=== PATIENT | male | born 1945 | race Caucasian/White ===

== ENCOUNTER 2018-02-13 12:53 | Emergency (ER) | payer OTHER, MEDICARE ==
--- OUTSIDE RECORDS SUMMARY | 2018-02-13 12:54 | XMS REPORT | Clinical Summary ---
:1945 Author Organization [facility] Address [address] [place] [address] Care Team Providers Name Role Phone Jacky Guillen MD Primary Care Provider Allergies No Known Allergies Current Medications Prescription Sig. Disp. Refills Start Date End Date Status celecoxib (CeleBREX) 200 MG 06/20/2016 Active capsule gabapentin (NEURONTIN) 600 mg TK 1 T PO QHS 0 06/12/2016 Active tablet HYDROcodone-acetaminophen 06/21/2016 Active (NORCO) 10-325 mg per tablet losartan (COZAAR) 100 MG TK 1 T PO QD 6 05/24/2016 Active tablet ondansetron (ZOFRAN) 4 MG 06/20/2016 Active tablet Active Problems Problem Noted Date Fever 08/21/2016 Osteoarthritis of right knee 07/03/2016 Encounters Date Type Specialty Care Team Description 06/25/2017 Hospital Encounter Radiology Aleksandar Gardner in chest MD Selena 06/18/2017 Transcribe Orders Access Aleksandar Gardner Mass in chest ( Primary AMD Angie Dx) after 02/12/2017 Social History Tobacco Use Types Packs/Day Years Used Date Current Some Day Smoker Alcohol Use Drinks/Week oz/Week Comments Yes 1 Cans of beer 1.2 1 Glasses of wine Sex Assigned at Date Recorded Not on file Last Filed Vital Signs Not on file Plan of Treatment Health Maintenance Due Date Last Done Comments COLON CANCER SCREENING 1997 SHINGRIX VACCINE (#1) 1997 ZOSTER VACCINE 2007 PNEUMOCOCCAL POLYSACCHARIDE VACCINE AGE 65 AND OVER 2012 PNEUMOCOCCAL-13 2012 INFLUENZA VACCINE 02/12/2018 Implants Implanted Type Area Lead Software Architect Device Expiration Model / Identifier Date Serial / Lot Ortega Patella 3-Pegs P3 - [id number] [id number] IMPLANT Right: [facility] 2020 [id number] / Implanted: Qty: 1 on 07/03/2016 by Tank Live MD DEVICES Knee IMPLANT SYSTEMS / - ORTHOPAEDICS [id number] As Obturator Screw 14mm X 7mm - [id number] [id number] IMPLANT Right: AESCUMEP [id number] / Implanted: Qty: 1 on 07/03/2016 by Tank Live MD DEVICES Knee IMPLANT SYSTEMS / - ORTHOPAEDICS [id number] As Ortega Ps Femoral Comp.Cement. F6n R - [id number] IPM IMPLANT Right: [facility] 2019 [id number] / Implanted: Qty: 1 on 07/03/2016 by Tank Live MD DEVICES Knee IMPLANT SYSTEMS / - ORTHOPAEDICS [id number] As Ortega Ps Tibial Plat.Cemented T4+, Tray, Coated - Cemented Advanced - [id number] [id number] IMPLANT Right: [facility] 2025 [id number] / Implanted: Qty: 1 on 07/03/2016 by Tank Live MD DEVICES Knee IMPLANT SYSTEMS / - ORTHOPAEDICS [id number] Ortega Ps Gliding Surface T4/T4+ 10mm, Insert - Advanced - [id number] [id number] IMPLANT Right: [facility] 09/11/2020 [id number] / Implanted: Qty: 1 on 07/03/2016 by Tank Live MD DEVICES Knee IMPLANT SYSTEMS / - ORTHOPAEDICS [id number] Cement Bone R+G 1dose Palacos - [id number] Knee Joint Right: [employer] [id number] / Implanted: Qty: 2 on 07/03/2016 by Tank Live MD Implants Knee / [id number] Procedures Procedure Name Priority Date/Time Associated Diagnosis Comments PET CT SKULL BASE Routine 06/25/2017 11:27 AM Mass in chest Results for this TO MID THIGH CERTIFIED INDOOR ENVIRONMENTALIST procedure are in the results section. POC GLUCOSE Routine 06/25/2017 10:08 AM Results for this CERTIFIED INDOOR ENVIRONMENTALIST procedure are in the results section. after 02/12/2017 Results PET/CT Skull Base To Mid Thigh (06/25/2017 11:27 AM) Narrative Performed At EXAMINATION:PET CT SKULL BASE TO MID THIGH [facility] CLINICAL HISTORY: R22.2 Localized swellingmass and lumptrunk, r22.2 COMPARISON:PET/CT scan of 02/03/2015 TECHNIQUE: The patient received 10-15 mCi 18-FDG intravenously. 1 hour later, PET/CT scanning from the orbits to the mid thighs was performed. CT scanning was nondiagnostic and used for attenuation correction purposes and to aid in localization of any abnormal findings on the PET images. Blood eespwwn=114. FINDINGS: Head and Neck There is no suspicious lymph node uptake and is no evidence of malignancy in the visualized brain. Chest Pulmonary, mediastinal, hilar, and axillary uptake are normal. Abdomen Uptake in the liver, spleen, adrenal glands, stomach, pancreas, and kidneys is normal. There is no suspicious retroperitoneal or mesenteric lymph node uptake. Pelvis There is no suspicious pelvic or inguinal lymph node uptake. Mild, nonspecific inflammatory uptake near surgical clips in the inguinal regions bilaterally. Osseous Structures There is no suspicious osseous uptake. IMPRESSION: 1.No evidence of an FDG-avid malignancy. 2.Interval resolution of previously seen mild left perihilar abnormality. [facility]-[id number] Procedure Note Interface, Radiology Results Incoming - 06/25/2017 12:06 PM CERTIFIED INDOOR ENVIRONMENTALIST EXAMINATION: PET CT SKULL BASE TO MID THIGH CLINICAL HISTORY: R22.2 Localized swelling mass and lump trunk, r22.2 COMPARISON: PET/CT scan of 02/03/2015 TECHNIQUE: The patient received 10-15 mCi 18-FDG intravenously. 1 hour later, PET/CT scanning from the orbits to the mid thighs was performed. CT scanning was nondiagnostic and used for attenuation correction purposes and to aid in localization of any abnormal findings on the PET images. Blood xphalzs=405. FINDINGS: Head and Neck There is no suspicious lymph node uptake and is no evidence of malignancy in the visualized brain. Chest Pulmonary, mediastinal, hilar, and axillary uptake are normal. Abdomen Uptake in the liver, spleen, adrenal glands, stomach, pancreas, and kidneys is normal. There is no suspicious retroperitoneal or mesenteric lymph node uptake. Pelvis There is no suspicious pelvic or inguinal lymph node uptake. Mild, nonspecific inflammatory uptake near surgical clips in the inguinal regions bilaterally. Osseous Structures There is no suspicious osseous uptake. IMPRESSION: 1. No evidence of an FDG-avid malignancy. 2. Interval resolution of previously seen mild left perihilar abnormality. [facility]-[id number] Performing Organization Address City/State/Zipcode Phone Number [facility] [address] [place] [address] POC glucose (06/25/2017 10:08 AM) POC glucose 114 (H) 65 - 99 mg/dL [facility] DEPARTMENT OF PATHOLOGY AND Comment: GENOMIC MEDICINE No Action Needed Meter ID: [id number] Engineering Design Manager: Jada Bedolla Performing Organization Address City/[facility] Phone Number [facility] DEPARTMENT OF PATHOLOGY AND [address] [place] [address] GENOMIC MEDICINE after 02/12/2017 Insurance Payer Benefit Plan / Group Subscriber ID Type Phone Address MEDICARE MEDICARE PART A AND B xxxxxxxxxx Medicare [place], [place] AARP AARP SUPPLEMENT xxxxxxxxxx Commercial Home: [address] [phone] [place], [place] [address]
[2018-02-13] MEDS ORDERED: ONDANSETRON 4 MG/2 ML VIAL ONE (13:21)
[2018-02-13] MEDS ORDERED: NA CHLORIDE 0.9% 1,000 ML ONE (13:21)
[2018-02-13] MEDS ORDERED: MORPHINE 4 MG/ML SYR ONE (13:21)
[2018-02-13 13:45] LABS: Protime INR 1.02
[2018-02-13 13:49] LABS: Absolute Lymphocytes (CBC) 1.9 K/uL (0.7-4.9); Absolute Monocytes 0.4 K/uL (0.1-1.3); Absolute Neutrophil 3.8 K/uL (1.8-8.0); Basophils % 1.3 % (0-1.3); Eosinophils % 3.7 % (0-4.4); Hematocrit 38.8 % (39.6-49.0); Lymphocytes % 29.9 % (15.3-44.8); MCH 33.9 pg (27.0-35.0); MCV 97.1 fL (80-100); MPV 8.6 fL (7.6-11.3); Monocytes % 5.6 % (3.3-12.3)
--- NOTE | 2018-02-13 13:54 | RAD REPORT ---
EXAM DESCRIPTION: RAD - Chest Single View - 02/13/2018 1:47 pm CLINICAL HISTORY: CHEST PAIN Trauma, fall COMPARISON: Chest Pa And Lat (2 Views) dated 06/12/2017; Chest Single View dated 08/16/2016; CHEST PA AND LAT 2 VIEW dated 07/24/2012; CHEST SINGLE VIEW dated 02/24/2010 FINDINGS: Portable technique limits examination quality. The lungs are grossly clear. The heart is normal in size. Hardware is present along the left thoracic cage in the left clavicle. Right humeral prosthesis is present.
[2018-02-13 13:55] LABS: Potassium 4.7 mmol/L (3.5-5.1)
--- NOTE | 2018-02-13 14:03 | RAD REPORT ---
EXAM DESCRIPTION: RAD - Humerus Left - 02/13/2018 1:53 pm CLINICAL HISTORY: fall down stairs;Pain Trauma COMPARISON: No comparisons FINDINGS: No acute fracture or dislocation seen.
--- NOTE | 2018-02-13 14:30 | RAD REPORT ---
EXAM DESCRIPTION: CT - Head C Spine Cap W Con - 02/13/2018 2:17 pm CLINICAL HISTORY: Trauma, head and neck injury. Chest, abdomen and pelvis pain. fall down stairs COMPARISON: Abdomen Pelvis W Contrast dated 08/22/2016 TECHNIQUE: CT head without contrast. CT cervical spine without contrast with coronal and sagittal reformatted images. CT chest, abdomen and pelvis with IV contrast (approximately 100 mL nonionic IV contrast) with flores l and sagittal reformatted images of the spine. All CT scans are performed using dose optimization technique as appropriate and may include automated exposure control or mA/KV adjustment according to patient size. FINDINGS: CT HEAD WITHOUT CONTRAST: No intracranial hemorrhage, hydrocephalus or extra-axial fluid collection. No areas of brain edema o r midline shift. The paranasal sinuses and mastoids are clear. The calvarium is intact. CT CERVICAL SPINE WITHOUT CONTRAST: No fracture or subluxation. Mild lower cervical spondylosis. The prevertebral soft tissues are normal in thickness. CT CHEST, ABDOMEN, PELVIS WITH CONTRAST: The lungs are clear.Hardware is noted in the left clavicle and left rib cage.No pneumothorax or peric ardial/pleural fluid. No evidence of intra-abdominal visceral injury, free fluid or free air. Cholecystectomy clips. Evidence of inguinal hernia repairs noted. No acute fractures demonstrated. IMPRESSION: Negative for acute traumatic findings.
[2018-02-13] MEDS ORDERED: KETOROLAC 30 MG/ML INJ ONE (15:17)
--- NOTE | 2018-02-13 15:53 | EDPHYS ---
Physician Documentation [facility] Name: Irvin Ramirez Age: 72 yrs Sex: Male : 1945 Arrival Date: 02/13/2018 Time: 12:42 Bed 23 Private MD: ED Physician Sedrick Thurston HPI: 02/13 13:00 This 72 yrs old Male presents to ER via EMS with complaints of Fall Injury. cp 13:00 Details of fall: The patient fell from a height, down approximately 5 stairs, and cp struck a concrete surface. Onset: The symptoms/episode began/occurred just prior to arrival. Associated injuries: The patient sustained injury to the head, abrasion, injury to the chest, specifically the left lateral anterior chest and left lateral posterior chest, pain with movement, left shoulder, decreased range of motion, painful injury. 13:00 Severity of symptoms: in the emergency department the symptoms are unchanged. Patient cp reports trip and fall down 5 stairs located outside. Possible brief LOC. Historical: - Allergies: 12:52 No Known Allergies; ss - PMHx: 12:52 Hypertension; Atrial Fib; ss - PSHx: 12:52 Cholecystectomy; TBI; titanium ribs (L side); ss - Immunization history:: Adult Immunizations up to date. - Social history:: Smoking status: Patient/guardian denies using tobacco. - Immunization history: Last tetanus immunization: unknown. - Ebola Screening: : Patient denies exposure to infectious person Patient denies travel to an Ebola-affected area in the 21 days before illness onset. ROS: 13:05 Constitutional: Negative for body aches, chills, fever, poor PO intake. cp 13:05 Eyes: Negative for injury, pain, redness, and discharge. cp 13:05 ENT: Negative for drainage from ear(s), ear pain, sore throat, difficulty swallowing, difficulty handling secretions. 13:05 Neck: Negative for stiffness, bony tenderness. 13:05 Cardiovascular: Positive for chest pain, of the left lateral chest, Negative for edema, palpitations. 13:05 Respiratory: Negative for cough, shortness of breath, wheezing. 13:05 Abdomen/GI: Positive for abdominal pain, of the anterior aspect of left lateral abdomen and posterior aspect of left lateral abdomen, Negative for nausea, vomiting, and diarrhea, constipation, anorexia, black/tarry stool, rectal bleeding. 13:05 Back: Negative for pain at rest, pain with movement. 13:05 MS/extremity: Positive for decreased range of motion, pain, tenderness, of the left shoulder, Negative for paresthesias, tenderness. 13:05 Skin: Positive for abrasion(s), of the face and bilateral knees, Negative for diaphoresis. 13:05 Neuro: Negative for altered mental status, headache, seizure activity, syncope, near syncope, weakness. 13:05 All other systems are negative. Exam: 13:12 Constitutional: The patient appears in no acute distress, alert, awake, cp non-diaphoretic, non-toxic, well developed, well nourished. 13:12 Head/face: Noted is abrasion(s), that are mild, of the left religious, swelling, that is cp mild, of the left religious, Sinus tenderness, is not appreciated. 13:12 Eyes: Periorbital structures: appear normal, Pupils: equal, round, and reactive to light and accomodation, Extraocular movements: intact throughout, Conjunctiva: normal, no exudate, no injection, Sclera: no appreciated abnormality, Lids and lashes: appear normal, bilaterally. 13:12 ENT: External ear(s): are unremarkable, Ear canal(s): are normal, clear, TM's: are normal, no evidence of bulging, no erythema, Nose: is normal, Mouth: is normal, Posterior pharynx: is normal, airway is patent, no erythema, no exudate, Voice: is normal. 13:12 Neck: C-spine: C-collar placed in ED, Trachea: is midline with no obvious abnormalities. 13:12 Chest/axilla: Inspection: normal, Palpation: is normal, no crepitus, no tenderness. 13:12 Cardiovascular: Rate: normal, Rhythm: regular, Pulses: Pulses are 2+ in right radial artery and left radial artery. Edema: is not appreciated, JVD: is not appreciated. 13:12 Respiratory: the patient does not display signs of respiratory distress, Respirations: normal, no use of accessory muscles, no retractions, no splinting, no tachypnea, labored breathing, is not present, Breath sounds: are clear throughout, no decreased breath sounds, no stridor, no wheezing. 13:12 Abdomen/GI: Inspection: abdomen appears normal, Bowel sounds: active, all quadrants, Palpation: soft, in all quadrants, moderate abdominal tenderness, in the anterior aspect of left lateral abdomen and posterior aspect of left lateral abdomen, rebound tenderness, is not appreciated, voluntary guarding, is elicited in the anterior aspect of left lateral abdomen and posterior aspect of left lateral abdomen, involuntary guarding, is not appreciated. 13:12 Back: vertebral tenderness, is not appreciated, Straight leg raises: of both lower extremities does not illicit pain. 13:12 Musculoskeletal/extremity: Joints: All joints are normal except the left shoulder displays limited range of motion, painful range of motion, tenderness. 13:12 Skin: injury, abrasion(s), small abrasion noted, of the anterior aspect bilateral knees. 13:12 Neuro: Orientation: to person, place \T\ time. Mentation: lucid, able to follow commands, Cerebellar function: is grossly normal, Motor: moves all fours, strength is normal, Sensation: is normal. Vital Signs: 12:40 BP 161 / 84; Pulse 70; Resp 16; Temp 98.0(TE); Pulse Ox 98% on R/A; Weight 122.47 kg; ss Height 6 ft. 3 in. (190.50 cm); Pain 8/10; 13:36 BP 134 / 86; Pulse 98; Resp 18; Temp 98.5(O); Pulse Ox 98% on R/A; Pain 2/10; ed1 14:36 BP 120 / 64; Pulse 65; Resp 16; Temp 97.5; Pulse Ox 100% on R/A; Pain 3/10; ed1 15:36 BP 121 / 69; Pulse 73; Resp 18; Temp 98.1(O); Pulse Ox 99% on R/A; Pain 3/10; ed1 16:07 BP 128 / 73; Pulse 86; Resp 17; Temp 98.2(O); Pulse Ox 99% on R/A; Pain 0/10; ed1 12:40 Body Mass Index 33.75 (122.47 kg, 190.50 cm) Mesa Coma Score: 12:40 Eye Response: spontaneous(4). Verbal Response: oriented(5). Motor Response: obeys commands(6). Total: 15. Trauma Score (Adult): 12:40 Eye Response: spontaneous(1); Verbal Response: oriented(1); Motor Response: obeys ss commands(2); Systolic BP: > 89 mm Hg(4); Respiratory Rate: 10 to 29 per min(4); Mesa Score: 15; Trauma Score: 12 13:36 Eye Response: spontaneous(1); Verbal Response: oriented(1); Motor Response: obeys ed1 commands(2); Systolic BP: > 89 mm Hg(4); Respiratory Rate: 10 to 29 per min(4); Dayron Score: 15; Trauma Score: 12 14:36 Eye Response: spontaneous(1); Verbal Response: oriented(1); Motor Response: obeys ed1 commands(2); Systolic BP: > 89 mm Hg(4); Respiratory Rate: 10 to 29 per min(4); Mesa Score: 15; Trauma Score: 12 15:36 Eye Response: spontaneous(1); Verbal Response: oriented(1); Motor Response: obeys ed1 commands(2); Systolic BP: > 89 mm Hg(4); Respiratory Rate: 10 to 29 per min(4); Dayron Score: 15; Trauma Score: 12 16:07 Eye Response: spontaneous(1); Verbal Response: oriented(1); Motor Response: obeys ed1 commands(2); Systolic BP: > 89 mm Hg(4); Respiratory Rate: 10 to 29 per min(4); Mesa Score: 15; Trauma Score: 12 Procedures: 16:00 Splinting: Splint applied to left shoulder using sling, applied by nurse. Examined by cp me, post splint application: neurovascular intact, Patient tolerated well. MDM: 12:50 Patient medically screened. cp 15:50 Data reviewed: vital signs, nurses notes, lab test result(s), EKG, radiologic studies, cp CT scan. 15:50 Test interpretation: by ED physician or midlevel provider: ECG. Counseling: I had a cp detailed discussion with the patient and/or guardian regarding: the historical points, exam findings, and any diagnostic results supporting the discharge/admit diagnosis, lab results, radiology results, the need for outpatient follow up, a orthopedic surgeon, to return to the emergency department if symptoms worsen or persist or if there are any questions or concerns that arise at home. Response to treatment: the patient's symptoms have markedly improved after treatment, and as a result, I will discharge patient. ED course: VSS. Radiology studies negative for significant trauma. Will discharge to home for continued monitoring. 02/13 12:53 Order name: Basic Metabolic Panel; Complete Time: 15:04 cp 02/13 15:04 Interpretation: Normal except: GFR 74. cp 02/13 12:53 Order name: CBC with Diff; Complete Time: 15:04 cp 02/13 15:04 Interpretation: Normal except: RBC 4.00; HCT 38.8; MCV 97.1. cp 02/13 12:53 Order name: Creatinine for Radiology; Complete Time: 15:04 cp 02/13 12:53 Order name: Type And Screen; Complete Time: 15:04 cp 02/13 12:53 Order name: PT-INR; Complete Time: 15:04 cp 02/13 12:53 Order name: Ptt, Activated; Complete Time: 15:04 cp 02/13 12:53 Order name: XRAY Humerus LEFT; Complete Time: 15:04 cp 02/13 12:53 Order name: XRAY Chest (1 view); Complete Time: 15:04 cp 02/13 12:53 Order name: CT Traumagram (Head C Spine CAP W Con); Complete Time: 15:04 cp 02/13 15:06 Interpretation: Report reviewed. 02/13 12:53 Order name: Troponin I; Complete Time: 15:04 cp 02/13 14:31 Order name: ABO/RH no charge; Complete Time: 15:04 EDMS 02/13 15:56 Order name: Urine Dipstick--Ancillary (enter results) 02/13 12:53 Order name: Labs collected and sent; Complete Time: 13:15 cp 02/13 12:53 Order name: Urine Dipstick-Ancillary (obtain specimen); Complete Time: 16:29 cp 02/13 12:53 Order name: EKG; Complete Time: 12:54 cp 02/13 12:53 Order name: EKG - Nurse/Tech; Complete Time: 13:16 cp 02/13 15:49 Order name: Sling; Complete Time: 16:29 cp Administered Medications: 13:23 Drug: NS 0.9% 250 ml Route: IV; Rate: bolus; Site: right antecubital; ed1 13:55 Follow up: IV Status: Completed infusion; IV Intake: 250ml ed1 13:23 Drug: NS 0.9% 1000 ml Route: IV; Rate: 75 ml/hr; Site: right antecubital; ed1 16:12 Follow up: IV Status: Order to discontinue infusion; IV Intake: 155ml ed1 13:25 Drug: morphine 4 mg Route: IVP; Site: right antecubital; ss 14:20 Follow up: Response: No adverse reaction; Pain is decreased ed1 13:25 Drug: Zofran 4 mg Route: IVP; Site: right antecubital; ss 14:20 Follow up: Response: No adverse reaction ed1 15:15 Drug: TORadol 30 mg Route: IVP; Site: right antecubital; ss 16:05 Follow up: Response: No adverse reaction; Pain is decreased ed1 16:05 Drug: Tetanus-Diphtheria Toxoid Adult 0.5 ml {Valet Attendant: Vinobo. Exp: ed1 04/02/2020. Lot #: [id number]. } Route: IM; Site: right deltoid; 16:12 Follow up: Response: No adverse reaction ed1 Disposition: 17:00 Chart complete. cp Disposition: 02/13/18 15:53 Discharged to Home. Impression: Pain in left shoulder - s/p fall, Fall (on) (from) other stairs and steps, Abrasion of unspecified part of head. - Condition is Stable. - Discharge Instructions: Head Injury, Adult, Shoulder Pain, Shoulder Range of Motion Exercises. - Prescriptions for Ibuprofen 800 mg Oral Tablet - take 1 tablet by ORAL route every 8 hours As needed take with food; 30 tablet. Cyclobenzaprine 10 mg Oral Tablet - take 1 tablet by ORAL route every 8 hours As needed no driving while taking medication; 20 tablet. Tramadol 50 mg Oral Tablet - take 1 tablet by ORAL route every 8 hours as needed. no driving while taking medication; 15 tablet. - Medication Reconciliation Form, Thank You Letter, Antibiotic Education, Prescription Opioid Use form. - Follow up: Private Physician; When: 2 - 3 days; Reason: Recheck today's complaints. - Problem is new. - Symptoms have improved. Addendum: 02/17/2018 07:17 Co-signature as Attending Physician, Sedrick Thurston MD I agree with the assessment and k dr plan of care. Signatures: Dispatcher [employer] EDSC Sedrick Thurston MD MD kdr Smirch, Shelby, RN RN ss Anu Garcia, GROUNDS KEEPER GROUNDS KEEPER ed1 Ivan Carlson PA PA cp Corrections: (The following items were deleted from the chart) 02/13 16:29 15:53 02/13/2018 15:53 Discharged to Home. Impression: Pain in left shoulder - s/p ed1 fall; Fall (on) (from) other stairs and steps; Abrasion of unspecified part of head. Condition is Stable. Forms are Medication Reconciliation Form, Thank You Letter, Antibiotic Education, Prescription Opioid Use. Follow up: Private Physician; When: 2 - 3 days; Reason: Recheck today's complaints. Problem is new. Symptoms have improved. cp
--- NOTE | 2018-02-13 15:53 | ER ---
Nurse's Notes [facility] Name: Irvin Ramirez Age: 72 yrs Sex: Male : 1945 Arrival Date: 02/13/2018 Time: 12:42 Bed 23 Private MD: Diagnosis: Pain in left shoulder-s/p fall;Fall (on) (from) other stairs and steps;Abrasion of unspecified part of head Presentation: 02/13 12:42 Presenting complaint: Patient states: Fell down 5 steps after getting distracted and ss losing footing, approx 45 minutes ago. Unknown LOC. Pt reports that if he did lose consciousness that it was for a very brief moment. Pt c/o pain to L shoulder and L lateral aspect of chest. Care prior to arrival: None. Mechanism of Injury: Fall down 5 steps. Trauma event details: Injury occurred in the [facility], Injury occurred: in a public building. Injury occurred: February 13, 2018. 12:42 Acuity: MARIBEL 3 ss 12:42 Method Of Arrival: EMS: [facility] ss 12:42 Transition of care: patient was not received from another setting of care. Onset of ss symptoms was February 13, 2018. Risk Assessment: Do you want to hurt yourself or someone else? Patient reports no desire to harm self or others. Initial Sepsis Screen: Does the patient meet any 2 criteria? No. Patient's initial sepsis screen is negative. Does the patient have a suspected source of infection? No. Patient's initial sepsis screen is negative. Trauma Activation: Alert Physician: ED Physician; Name: Dr. Thurston; Notified At: 12:32; Arrived At: 12:32 Physician: General Surgeon; Name: ; Notified At: 12:32; Arrived At: Specialty not needed Physician: Radiology; Name: Jacy (CT) Adam (XRAY); Notified At: 12:32; Arrived At: 12:32 Physician: Respiratory; Name: ; Notified At: 12:32; Arrived At: Specialty not needed Physician: Lab; Name: ; Notified At: 12:32; Arrived At: Specialty not needed Historical: - Allergies: 12:52 No Known Allergies; ss - PMHx: 12:52 Hypertension; Atrial Fib; ss - PSHx: 12:52 Cholecystectomy; TBI; titanium ribs (L side); ss - Immunization history:: Adult Immunizations up to date. - Social history:: Smoking status: Patient/guardian denies using tobacco. - Immunization history: Last tetanus immunization: unknown. - Ebola Screening: : Patient denies exposure to infectious person Patient denies travel to an Ebola-affected area in the 21 days before illness onset. Screenin:40 Abuse screen: Denies threats or abuse. Denies injuries from another. Tuberculosis ss screening: No symptoms or risk factors identified. Never had TB. 15:00 Fall Risk Fall in past 12 months (25 points). No secondary diagnosis (0 pts). IV access ed1 (20 points). Ambulatory Aid- None/Bed Rest/Nurse Assist (0 pts). Gait- Normal/Bed Rest/Wheelchair (0 pts) Mental Status- Oriented to own ability (0 pts). Total Gonzalez Fall Scale indicates Low Risk Score (25-44 pts). Fall prevention measures have been instituted. Side Rails Up X 2 Frequent Obs/Assesments occuring Family Present and informed to notify staff if they need to leave bedside As available Patient and Family Educated on Fall Prevention Program and strategies. 16:07 Nutritional screening: No deficits noted. ed1 Primary Survey: 12:42 A: Airway: patent, No supplemental oxygen in use on arrival. Oral cavity: clear, ss Trachea midline. Breathing/Chest: Respiratory pattern: regular, Respiratory effort: spontaneous, unlabored, Breath sounds: clear, bilaterally. Chest inspection: symmetrical rise and fall of the chest. Circulation: Pulses: palpable right radial artery, right posterior tibial artery, left radial artery and left posterior tibial artery. Skin temperature: warm. Disability Alert. 13:20 Reassessment Airway Airway Patent Oxygen No O2 Oral cavity Clear Trachea Midline ss Breathing/Chest Respiratory pattern Regular Respiratory effort Spontaneous Unlabored Breath sounds Clear Chest inspection Symmetrical Disability Alert. Secondary Survey: 12:42 HEENT: Head Other abrasion, approximately half dollar in size noted to L side of ss forehead. Musculoskeletal: Circulation, motion, and sensation intact. Capillary refill < 3 seconds, is brisk, in bilateral fingers. Range of motion: limited in left shoulder Swelling absent. Assessment: 12:42 General: Appears uncomfortable, Behavior is cooperative, anxious, Denies fever, feeling ss ill, fatigue, chills, Pt denies any neck pain. C collar applied on arrival per MAX Hernandez. General:. Pain: Complains of pain in L lateral aspect of ribs and L shoulder Pain currently is 8 out of 10 on a pain scale. Quality of pain is described as aching, tender, Pain began approx 45 minutes ago, suddenly after fall Is continuous, Aggravated by repositioning, applying pressure, deep breathing. Neuro: Level of Consciousness is awake, alert, obeys commands, Oriented to person, place, time, situation, Speech is normal, Facial symmetry appears normal, Pupils are PERRLA. EENT: Nares are clear Oral mucosa is moist. Throat is clear is pink Denies nasal congestion, nasal discharge, difficulty swallowing. Cardiovascular: Heart tones S1 S2 present Capillary refill < 3 seconds is brisk in bilateral fingers Patient's skin is warm and dry. Respiratory: Reports pain with movement pain with respiration Airway is patent Trachea midline Respiratory effort is even, unlabored, Respiratory pattern is regular, symmetrical, Breath sounds are clear bilaterally. GI: Abdomen is round non-distended, Patient currently denies abdominal pain, diarrhea, nausea, vomiting. : No signs and/or symptoms were reported regarding the genitourinary system. Derm: Skin is intact, is healthy with good turgor, Skin is dry, Skin is pink, warm \T\ dry. normal. Musculoskeletal: Circulation, motion, and sensation intact. Capillary refill < 3 seconds, is brisk, in bilateral fingers. Range of motion: limited in left shoulder Swelling absent. Injury Description: Abrasion sustained to R side of forehead. 13:36 Reassessment: Patient appears in no apparent distress at this time. No changes from ed1 previously documented assessment. Patient and/or family updated on plan of care and expected duration. Pain level reassessed. Patient is alert, oriented x 3, equal unlabored respirations, skin warm/dry/pink. Patient states feeling better. Patient states symptoms have improved. 14:22 Reassessment: Pt back form CT, appears comfortable. Awaiting results. C collar remains ss in place. 14:36 Reassessment: Patient appears in no apparent distress at this time. Patient and/or ed1 family updated on plan of care and expected duration. Pain level reassessed. Patient is alert, oriented x 3, equal unlabored respirations, skin warm/dry/pink. Patient denies pain at this time. Patient states feeling better. Patient states symptoms have improved. 15:36 Reassessment: Patient appears in no apparent distress at this time. No changes from ed1 previously documented assessment. Patient and/or family updated on plan of care and expected duration. Pain level reassessed. Patient is alert, oriented x 3, equal unlabored respirations, skin warm/dry/pink. 16:07 Reassessment: Patient appears in no apparent distress at this time. Patient and/or ed1 family updated on plan of care and expected duration. Pain level reassessed. Patient is alert, oriented x 3, equal unlabored respirations, skin warm/dry/pink. Patient denies pain at this time. Patient states feeling better. Patient states symptoms have improved. Vital Signs: 12:40 BP 161 / 84; Pulse 70; Resp 16; Temp 98.0(TE); Pulse Ox 98% on R/A; Weight 122.47 kg; ss Height 6 ft. 3 in. (190.50 cm); Pain 8/10; 13:36 BP 134 / 86; Pulse 98; Resp 18; Temp 98.5(O); Pulse Ox 98% on R/A; Pain 2/10; ed1 14:36 BP 120 / 64; Pulse 65; Resp 16; Temp 97.5; Pulse Ox 100% on R/A; Pain 3/10; ed1 15:36 BP 121 / 69; Pulse 73; Resp 18; Temp 98.1(O); Pulse Ox 99% on R/A; Pain 3/10; ed1 16:07 BP 128 / 73; Pulse 86; Resp 17; Temp 98.2(O); Pulse Ox 99% on R/A; Pain 0/10; ed1 12:40 Body Mass Index 33.75 (122.47 kg, 190.50 cm) Dayron Coma Score: 12:40 Eye Response: spontaneous(4). Verbal Response: oriented(5). Motor Response: obeys ss commands(6). Total: 15. Trauma Score (Adult): 12:40 Eye Response: spontaneous(1); Verbal Response: oriented(1); Motor Response: obeys ss commands(2); Systolic BP: > 89 mm Hg(4); Respiratory Rate: 10 to 29 per min(4); [place] Score: 15; Trauma Score: 12 13:36 Eye Response: spontaneous(1); Verbal Response: oriented(1); Motor Response: obeys ed1 commands(2); Systolic BP: > 89 mm Hg(4); Respiratory Rate: 10 to 29 per min(4); [place] Score: 15; Trauma Score: 12 14:36 Eye Response: spontaneous(1); Verbal Response: oriented(1); Motor Response: obeys ed1 commands(2); Systolic BP: > 89 mm Hg(4); Respiratory Rate: 10 to 29 per min(4); [place]ron Score: 15; Trauma Score: 12 15:36 Eye Response: spontaneous(1); Verbal Response: oriented(1); Motor Response: obeys ed1 commands(2); Systolic BP: > 89 mm Hg(4); Respiratory Rate: 10 to 29 per min(4); Dayron Score: 15; Trauma Score: 12 16:07 Eye Response: spontaneous(1); Verbal Response: oriented(1); Motor Response: obeys ed1 commands(2); Systolic BP: > 89 mm Hg(4); Respiratory Rate: 10 to 29 per min(4); [place] Score: 15; Trauma Score: 12 ED Course: 12:40 Patient has correct armband on for positive identification. Bed in low position. Call ss light in reach. Side rails up X 1. Pulse ox on. NIBP on. 12:40 Patient maintains SpO2 saturation greater than 95% on room air. ss 12:42 Patient arrived in ED. ss 12:42 Thermoregulation: warm blanket given to patient. ed1 12:43 Ivan Carlson PA is PHCP. cp 12:43 Sedrick Thurston MD is Attending Physician. cp 12:46 Triage completed. ss 12:52 Arm band placed on right wrist. ss 12:55 Kasie Bangura, TRINITY is Primary Nurse. ss 13:11 EKG done, by qa tech. reviewed by Ivan SANTANA. at1 13:23 Initial lab(s) drawn, by ne, sent to lab. T\T\S collected, blood band applied to patient. ed1 Inserted saline lock: 20 gauge in right antecubital area, using aseptic technique. Blood collected. 13:39 X-ray completed. Portable x-ray completed in exam room. Patient tolerated procedure jb2 well. 13:45 XRAY Humerus LEFT In Process Unspecified. EDMS 13:45 XRAY Chest (1 view) In Process Unspecified. EDMS 14:[address] via stretcher. sj 14:18 CT Traumagram (Head C Spine CAP W Con) In Process Unspecified. EDMS 15:51 Resting quietly. Awaiting disposition. ed1 16:09 Awaiting: catalyst plant supervisor to bring sling per order. ed1 16:09 No provider procedures requiring assistance completed. IV discontinued, intact, ed1 bleeding controlled, No redness/swelling at site. Pressure dressing applied. 16:28 Sling applied to left arm. ed1 Administered Medications: 13:23 Drug: NS 0.9% 250 ml Route: IV; Rate: bolus; Site: right antecubital; ed1 13:55 Follow up: IV Status: Completed infusion; IV Intake: 250ml ed1 13:23 Drug: NS 0.9% 1000 ml Route: IV; Rate: 75 ml/hr; Site: right antecubital; ed1 16:12 Follow up: IV Status: Order to discontinue infusion; IV Intake: 155ml ed1 13:25 Drug: morphine 4 mg Route: IVP; Site: right antecubital; ss 14:20 Follow up: Response: No adverse reaction; Pain is decreased ed1 13:25 Drug: Zofran 4 mg Route: IVP; Site: right antecubital; ss 14:20 Follow up: Response: No adverse reaction ed1 15:15 Drug: TORadol 30 mg Route: IVP; Site: right antecubital; ss 16:05 Follow up: Response: No adverse reaction; Pain is decreased ed1 16:05 Drug: Tetanus-Diphtheria Toxoid Adult 0.5 ml {Finish Painter: I-Stand. Exp: ed1 04/02/2020. Lot #: [id number]. } Route: IM; Site: right deltoid; 16:12 Follow up: Response: No adverse reaction ed1 Intake: 13:36 PO: 0ml; Total: 0ml. ed1 13:55 IV: 250ml; Total: 250ml. ed1 14:36 PO: 0ml; Total: 250ml. ed1 15:36 IV: 250ml (IV Fluid); Total: 500ml. ed1 16:07 PO: 0ml; Total: 500ml. ed1 16:10 PO: 0ml; IV: 405ml; Total: 905ml. ed1 16:12 IV: 155ml; Total: 1060ml. ed1 Output: 13:36 Urine: 0ml; Total: 0ml. ed1 14:36 Urine: 0ml; Total: 0ml. ed1 15:36 Urine: 0ml; Total: 0ml. ed1 15:50 Urine: 800ml (Voided); Total: 800ml. ed1 16:07 Urine: 0ml; Total: 800ml. ed1 16:10 Urine: 800ml (Voided); Total: 1600ml. ed1 Outcome: 15:53 Discharge ordered by MD. cp 16:08 Discharged to home ambulatory, with family. ed1 16:08 Condition: good 16:08 Discharge instructions given to patient, family, Instructed on discharge instructions, follow up and referral plans. medication usage, Demonstrated understanding of instructions, follow-up care, medications, Prescriptions given X 3. 16:11 Patient's length of stay in the Emergency Department was greater than 2 hours. ed1 16:29 Patient left the ED. ed1 Signatures: Dispatcher [employer] EDMS Adam Antonio jbAngelina Duncan Shelby, RN RN ss Anu Garcia, DEAF AND HARD OF HEARING TEACHER DEAF AND HARD OF HEARING TEACHER ed1 Gilda kuhn, radio equipment installer EKG Tat1 Ivan Carlson PA PA Leonor Perez [facility] Corrections: (The following items were deleted from the chart) 13:55 03:25 morphine 4 mg IVP in right antecubital ss 15:44 14:38 BP 120 / 64; Pulse 65bpm; Resp 16bpm; Pulse Ox 100% RA; mh5 ed1
[2018-02-13] MEDS ORDERED: TETANUS & DIPHTHERIA TOX,ADULT 0.5 ML VIAL ONE (16:03)
[2018-02-13 16:23] LABS: Urine Blood 2+ (NEG); Urine Glucose NEGATIVE (NEG); Urine Protein NEGATIVE (NEG); Urine Specific Gravity 1.015 (1.005-1.030); Urine pH 5.5 (5.0-7.0)
[2018-02-13 16:37] VITALS: O2SAT 99
[2018-02-13 16:39] VITALS: BP 128/73; TEMP 98.2
--- NOTE | 2018-02-13 16:53 | EKG ---
Test Date: 2018-02-13 Test Time: 12:58:08 Gis Engineer: PILO MEASUREMENT RESULTS: Intervals: Rate: 62 NH: 196 QRSD: 138 QT: 456 QTc: 462 [place]: P: 103 NH: 196 QRS: 86 T: 58 INTERPRETIVE STATEMENTS: Sinus rhythm with frequent premature ventricular complexes Right bundle branch block Abnormal ECG Compared to ECG 08/19/2016 05:24:33 Ventricular premature complex(es) now present Atrial premature complex(es) no longer present Electronically Signed On 02-13-18 16:52:06 CDT by Shen Alonso
== END 2018-02-13 16:29 | disposition home or self-care (01) ==
LOC: ER 12:53
DX: M25.512 Pain in left shoulder (principal); S00.81XA Abrasion of other part of head, initial encounter; I10 Essential (primary) hypertension; W01.198A Fall on same level from slipping, tripping and stumbling with subsequent striking against other object, initial encounter; Y93.89 Activity, other specified; Y92.9 Unspecified place or not applicable; Y99.9 Unspecified external cause status; Z23 Encounter for immunization
CPT/HCPCS: 36415; 70450; 71045; 71260; 72125; 73060; 74177; 80048; 81003; 84484; 85025; 85610; 85730; 86850; 86900; 86901; 90714; 93005; J2405; J7030; Q9967; 96361; 96365; 96375; 99285

== ENCOUNTER 2019-12-25 19:33 | Inpatient (IN) | payer OTHER, MEDICARE ==
--- OUTSIDE RECORDS SUMMARY | 2019-12-25 19:35 | XMS REPORT | Clinical Summary ---
:1945 Author Organization [facility] Address [address] [place] [address] Care Team Providers Name Role Phone Danna Guillen MD Primary Care Provider Allergies No Known Allergies Medications Medication Sig Dispensed Refills Start Date End Date Status losartan (COZAAR) 100 TK 1 T PO QD 6 05/24/2016 Active MG tablet flecainide (TAMBOCOR) Take 100 mg by 0 Active 100 MG tablet mouth 2 (two) times a day. amLODIPine (NORVASC) 10 Take 10 mg by 0 Active mg tablet mouth daily. Hospital, Clinic, or Other Ordered Dose Route Frequency Start Date End Date Status Facility Administered Medication cefTRIAXone (ROCEPHIN) 1 g IV once 04/23/2018 Active injection 1 g Active Problems Problem Noted Date Fever 08/21/2016 Osteoarthritis of right knee 07/03/2016 Social History Tobacco Use Types Packs/Day Years Used Date Former Smoker Quit: 08/15/18 89 Smokeless Tobacco: Never Used Alcohol Use Drinks/Week oz/Week Comments Yes 1 Glasses of wine 2.0 1 Cans of beer Sex Assigned at Date Recorded Not on file Job Start Date Occupation Industry Not on file Not on file Not on file Travel History Travel Start Travel End No recent travel history available. Last Filed Vital Signs Not on file Plan of Treatment Health Maintenance Due Date Last Done Comments COLONOSCOPY SCREENING 1997 SHINGLES VACCINES (#1) 1997 65+ PNEUMOCOCCAL VACCINE (1 of 2 - PCV13) 2012 INFLUENZA VACCINE 02/13/2020 Implants Implanted Type Area Etcher Apprentice Photoengraving Device Shelf Model / Identifier Expiration Serial / Date Lot Genesys Cross Ft Suture [place] With Three #2 Hi-Fi Sut ures - [id number] Distal Joint Left: CONMED 12/11/2020 CF 4503 / Implanted: Qty: 1 on 04/23/2018 by Nakul Henderson MD at [facility] Orthopedic Shoulder LINVATEC LENA / Implants [id number] Genesys Cross Ft Suture [place] With Three #2 Hi-Fi Sut ures - [id number] Distal Joint Left: CONMED 12/11/2020 CF 4503 / Implanted: Qty: 1 on 04/23/2018 by Nakul Henderson MD at [facility] Orthopedic Shoulder LINVATEC LENA / Implants [id number] Ortega Patella 3-Pegs P3 - [id number] IPM IMPLANT Right: Knee AESCULAP 02/11/2021 [id number] / Implanted: Qty: 1 on 07/03/2016 by Tank Live MD at [facility] DEVICES IMPLANT / SYSTEMS - [id number] ORTHOPAEDICS As Obturator Screw 14mm X 7mm - [id number] IPM IMPLANT Right: Knee AES CULAP 12/12/2025 [id number] / Implanted: Qty: 1 on 07/03/2016 by Tank Live MD at [facility] DEVICES IMPLANT / SYSTEMS - [id number] ORTHOPAEDICS As Ortega Ps Femoral Comp.Cement. F6n R - [id number] IPM IMPLANT Right: Knee AESCULAP 2019 [id number] / Implanted: Qty: 1 on 07/03/2016 by Tank Live MD at [facility] DEVICES IMPLANT / SYSTEMS - [id number] ORTHOPAEDICS As Ortega Ps Tibial Plat.Cemented T4+, Tra y, Coated - Cemented Advanced - [id number] [id number] IMPLANT Right: Knee AESCULAP 2025 [id number] / Implanted: Qty: 1 on 07/03/2016 by Tank Live MD at [facility] DEVICES IMPLANT / SYSTEMS - [id number] ORTHOPAEDICS Ortega Ps Gliding Surface T4/T4+ 10mm, Insert - Advanced - [id number] [id number] IMPLANT Right: Knee AESCULAP 09/11/2020 [id number] / Implanted: Qty: 1 on 07/03/2016 by Tank Live MD at [facility] DEVICES IMPLANT / SYSTEMS - [id number] ORTHOPAEDICS 3.4 Healix Br - [id number] IPM IMPLANT Left: DEPUY MITEK 09/11/2020 [id number] / Implanted: Qty: 1 on 04/23/2018 by Nakul Henderson MD at [facility] DEVICES Shoulder / [id number] Healix Advance Knotless, 4.75 - [id number] IPM IMPLANT Left: DEP UY MITEK 01/11/2021 [id number] / Implanted: Qty: 1 on 04/23/2018 by Nakul Henderson MD at [facility] DEVICES Shoulder / [id number] Cement Bone R+G 1dose [place] - [id number] Knee Joint Right: Knee ZIMM [employer] 2019 [id number] / Implanted: Qty: 2 on 07/03/2016 by Tank Live MD at [facility] Implants / [id number] Results Not on fileafter 12/24/2018 Insurance Payer Benefit Plan / Subscriber ID Effective Phone Address T ype Group Dates WORKERS COMP MISC WORKER'S xxxxxxxxxxxxx 2018-Pres Workers Comp COMP ent MEDICARE MEDICARE PART A xxxxxxxxxxx 2012-Pre [place] Medicare AND B sent AARP AARP SUPPLEMENT xxxxxxxxxx 2013-Pre Commercial sent Irvin Ramirez Jr Workers Comp Self [address] (Home) [place], [place] [phone] [id number] (Work) Advance Directives For more information, please contact: [phone] Type Date Recorded Patient Coke Oven Mason Explanati on Advance Directives, 01/03/2015 8:05 AM Living Will and Medical Power of Mohs Surgeon/General Dermatologist Advance Directives, 08/22/2016 1:23 PM Living Will and Medical Power of Mohs Surgeon/General Dermatologist
--- OUTSIDE RECORDS SUMMARY | 2019-12-25 19:36 | XMS REPORT | Continuity of Care Document ---
:1945 Author Organization [facility] t Address 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 01:17:24 l of Basal Reg shoulder, cell right carcinoma of shoulder, right Active 9 [facility] History of Diagnosis Active 2019-02-18 Memoria skin 22:36:41 l cancer History [place] of skin cancer Active 9 [facility] Seborrheic Diagnosis Active 2019-02-18 Memoria dermatitis 22:36:41 l , Reg unspecifie Seborrheic d dermatitis , unspecifie d Active 02/18/2019 [facility] Irritant Diagnosis Active 2019-02-18 M emoria dermatitis 22:36:41 l Irritant Nghia n dermatitis Active 02/18/2019 [facility] Neoplasm Diagnosis Active 2019-02-18 M emoria of 22:36:41 l uncertain Neoplasm Her rodriguez behavior of of skin of uncertain back behavior of skin of back Active 9 [facility] Health Neoplasm Diagnosis Active 2019-09-09 M emoria of 02:04:21 l uncertain Neoplasm Her rodriguez behavior of of skin uncertain behavior of skin Active 0 [facility] Health History of Diagnosis Active 2019-09-09 Memoria nonmelanom 02:04:21 l a skin History [place] cancer of nonmelanom a skin cancer Active 0 [facility] Health Seborrheic Diagnosis Active 2019-09-09 Memoria keratosis 02:04:21 l Reg Seborrheic keratosis Active 0 [facility] Health Atrial Problem Active 2019-10-30 Memor ia fibrillati 23:09:49 l on Atrial Reg (disorder) fibrillati on (disorder) Active Problem 10/30/2019 [facility] Cervical Problem Active 2019-10-30 Mem oria radiculopa 23:09:49 l thy Cervical Nghia n (disorder) radiculopa thy (disorder) Active Problem 10/30/2019 [facility] Hypertensi Problem Active 2019-10-30 M emoria ve 23:09:49 l disorder, Reg systemic Hypertensi arterial ve (disorder) disorder, systemic arterial (disorder) Active Problem 10/30/2019 [facility] Hyperlipid Problem Active 2019-10-30 M emoria emia 23:09:49 l (disorder) Nghia n Hyperlipid emia (disorder) Active Problem 10/30/2019 [facility] Lumbar Problem Active 2019-10-30 Memor ia radiculopa 23:09:49 l thy Lumbar [place] (disorder) radiculopa thy (disorder) Active Problem 10/30/2019 [facility] Paresthesi Problem Active 2019-10-30 M emoria a 23:09:49 l (finding) [place] Paresthesi a (finding) Active Problem 10/30/2019 [facility] Simple Problem Active 2019-10-30 Memor ia obesity 23:09:49 l (disorder) Simple Herm jcarlos obesity (disorder) Active Problem 10/30/2019 [facility] Peripheral Problem Active 2019-10-30 M emoria nerve 23:09:49 l disease Reg (disorder) Peripheral nerve disease (disorder) Active Problem 10/30/2019 [facility] Allergies, Adverse Reactions, Alerts Allergy Allergy Status Severity Reaction(s) Onset Inactive Treating Comm ents Source Name Type Date Date Clinician No Known No Known Active Memori a Medicati Medicati l on on Reg Allergie Allergie s s Social History Social Habit Start Date Stop Date Quantity Comments Source Sex Assigned At [facility]ist Alcohol intake 2018-04-24 2018-04-24 Current drinker [place] [facility] 00:00:00 00:00:00 of alcohol (finding) History of 1991-08-15 Current smoker [facility] thodist tobacco use 00:00:00 Smoking Status Start Date Stop Date Source Social History 2019-10-28 16:05:55 2019-10-28 16:05:55 [facility] Reg Tobacco smoking status WVIS Juan saba Finney Medications Ordered Filled Start Stop Current Ordering Indication Dosage Frequency Signature Comments Components Source Medication Medication Date Date Medication? Clinician (SIG) Name Name pregabalin 2019-0 Yes 50 mg = 1 Me moria 50 MG Oral 4-15 cap, PO, l Capsule 16:07: Bedtime, # Herm jcarlos [Lyrica] 00 30 cap, 3 Refill(s), Pharmacy: [facility] #[id number] Zolpidem 2020-0 Yes 5 mg = 1 Memor ia tartrate 5 4-15 tab, PO, l MG Oral 16:06: Bedtime, 0 Herm jcarlos Tablet 00 Refill(s) [Ambien] LOSARTAN 2019-0 Yes Take by Memor ia POTASSIUM 2-26 mouth. l (LOSARTAN 02:04: [place] ORAL) 21 SERTRALINE 2019-0 Yes Take by Mem oria HCL (ZOLOFT 2-26 mouth. l ORAL) 02:04: [place] 21 flecainide 2019-0 Yes Take 100 Mem oria 100 mg 2-26 mg by l tablet 02:04: mouth. [place] 21 albuterol 2019-0 Yes ProAir HFA Me moria 90 2-26 90 l mcg/actuati 02:04: mcg/actuat Reg on inhaler 21 ion aerosol inhaler losartan 2019-0 Yes 100 mg = 1 Mem oria 100 mg oral 1-16 tab, PO, l tablet 16:42: Daily, 0 [place] 00 Refill(s) flecainide 2019-0 Yes 100 mg = 1 M emoria 100 mg oral 1-16 tab, PO, l tablet 16:42: Q12H, 0 [place] 00 Refill(s) amLODIPine Yes 5 mg = 1 Mem oria 5 mg oral 1-16 tab, PO, l tablet 16:42: Daily, 0 [place] 00 Refill(s) flecainide 2017-07 Yes 100mg Q.5D Take 100 [place] (TAMBOCOR) 0-10 mg by Methodi 100 MG 17:22: mouth 2 st tablet 40 (two) times a day. amLODIPine 2017-07 Yes 10mg QD Take 10 mg [place] (NORVASC) 0-10 by mouth Method i 10 mg 17:22: daily. st tablet 40 cefTRIAXone 2017-07 Yes 1g [place] (ROCEPHIN) 0-10 Methodi injection 1 16:00: st g 00 triamcinolo Yes Apply to M shiraz ne 9-11 area(s) 2 l acetonide 00:00: (two) Reg 0.1 % cream 00 times daily as needed for Dermatitis /Rash or Itching. losartan 2015-07 Yes TK 1 T PO [place] (COZAAR) 1-10 QD Methodi 100 MG 00:00: st tablet 00 Vital Signs Vital Name Observation Time Observation Value Comments Source Systolic (mm Hg) 2019-09-10 17:08:00 Juan rial Reg Diastolic (mm Hg) 2019-09-10 17:08:00 Mem orial [place] Heart Rate 2019-09-10 17:08:00 [facility] [place] Respitory Rate 2019-09-10 17:08:00 Memori al Reg Height 2019-09-10 17:08:00 190.5 cm [facility] [place] Weight 2019-09-10 17:08:00 [facility] Reg BMI Calculated 2019-09-10 17:08:00 Memori al [place] Systolic (mm Hg) 2019-07-30 16:38:00 Juan rial Reg Diastolic (mm Hg) 2019-07-30 16:38:00 Mem orial [place] Heart Rate 2019-07-30 16:38:00 Memorial Reg Respitory Rate 2019-07-30 16:38:00 Memori al Reg Height 2019-07-30 16:38:00 190.5 cm [facility] Reg Weight 2019-07-30 16:38:00 [facility] Reg BMI Calculated 2019-07-30 16:38:00 Milly Marcus Procedures Procedure Date / Time Performing Clinician Source Performed NO SHOW OR MISSED 2019-02-16 19:39:08 Doctor Unassigned, No Juan Finney APPOINTMENT POLICY Name ACKNOWLEDGEMENT DERMATOPATHOLOGY TISSUE 2019-02-16 00:00:00 [facility] Will[facility] EXAM Rotator cuff repair Bacilio rodriguez Plan of Care Planned Activity Planned Date Details Comments Source Future Scheduled 2020-02-13 INFLUENZA VACCINE [place] [facility] 00:00:00 [code = INFLUENZA VACCINE] Future Scheduled 2019-09-09 Plan of Care [code = Mem orial Reg Test 02:04:01 25197-6] Future Scheduled 2019-09-08 Plan of Care [code = Mem orial Reg Test 15:31:56 82685-4] Future Scheduled 2019-03-15 Plan of Care [code = Mem orial [place] Test 00:00:00 79806-9] Future Scheduled 2019-02-19 Plan of Care [code = Mem orial [place] Test 20:44:44 70321-5] Future Scheduled 2019-02-16 Plan of Care [code = Mem orial Reg Test 15:23:41 28271-3] Future Scheduled 2019-02-16 Plan of Care [code = Mem orial Reg Test 14:39:10 53635-5] Future Scheduled 2012 65+ PNEUMOCOCCAL [facility] Test 00:00:00 VACCINE (1 of 2 - PCV13) [code = 65+ PNEUMOCOCCAL VACCINE (1 of 2 - PCV13)] Future Scheduled 2012 Plan of Care [code = Mem orial [place] Test 00:00:00 51817-0] Future Scheduled 2012 Medicare Annual [facility] [place] Test 00:00:00 Wellness Visit (procedure) [code = 923168481082917] Future Scheduled 1997 COLONOSCOPY SCREENING [facility] Test 00:00:00 [code = COLONOSCOPY SCREENING] Future Scheduled 1997 SHINGLES VACCINES (#1) [facility] Test 00:00:00 [code = SHINGLES VACCINES (#1)] Future Scheduled 1997 Plan of Care [code = Mem orial [place] Test 00:00:00 74470-1] Future Scheduled 1997 Screening for Memorial H [facility] Test 00:00:00 malignant neoplasm of colon (procedure) [code = 958537699] Future Scheduled 1966 Plan of Care [code = Mem orial Reg Test 00:00:00 42060-3] Future Scheduled 1958 Plan of Care [code = Mem orial Reg Test 00:00:00 18091-4] Future Scheduled 1945 Plan of Care [code = Mem orial Reg Test 00:00:00 25676-8] Future Scheduled 1945 Hepatitis C screening Me morial Reg Test 00:00:00 (procedure) [code = 665724358] Encounters Start End Encounter Admission Attending Care Care Encounter Source Date/Time Date/Time Type Type Clinicians Facility Department ID 2019-10-28 2019-10-28 Outpatient MIGUEL ANGEL Christy [id number] 10:45:00 23:59:59 Ruiz 02 Arturo 2019-09-10 2019-09-10 Outpatient MIGUEL ANGEL Christy [id number] 11:00:00 23:59:59 Ruiz 01 [facility] 2019-09-08 2019-09-08 Office ALVAREZ Willams [id number] 09:01:56 20:04:01 Visit Ron ROOT [id number] IAJO[place] [id number] [place] [phone] [facility] 2019-09-08 2019-09-08 Office ALVAREZ Willams [id number] 09:01:56 20:04:01 Visit Ron ROOT [id number] IAJO[place] [id number] [place] [phone] [facility] 2019-09-08 2019-09-08 Office ALVAREZ Willams [id number] 09:01:56 09:31:56 Visit Ron ROOT [id number] IAJOY [id number] [place] [id number] [facility] 2019-09-08 2019-09-08 Office Екатерина KSMORGAN [id number] 09:01:56 09:31:56 Visit Ron Ramos MULTISPEC [id number] IALT [id number] [place] [phone] [facility] 2019-07-30 2019-07-30 Outpatient MIGUEL ANGEL Christy [id number] 10:30:00 23:59:59 Ruiz Julia Arturo 2019-02-19 2019-02-19 Office [facility] [id number] 14:27:17 15:44:44 Visit Ron Ramos SPECIALTY [id number] TIPPO [id number] [place] [id number] [facility] 2019-02-19 2019-02-19 [facility] [id number] 14:27:17 15:44:44 Visit Ron Ramos SPECIALTY [id number] TIP[place] [id number] [place] [id number] [facility] 2019-02-16 2019-02-16 [facility] [id number] 09:39:01 10:23:41 Visit Ron Ramos SPECIALTY [id number] TIPPO [id number] [place]O [id number] [facility] 2019-02-16 2019-02-16 [facility] [id number] 09:39:01 10:23:41 Visit Ron Ramos SPECIALTY [id number] TIPPO [id number] [place] [id number] [facility] 2019-02-16 2019-02-16 Orders Doctor HANNAH [id number] 00:00:00 00:00:00 Only Unassigned, JW [id number] [place] [phone] [id number] Results This patient has no known results.
--- OUTSIDE RECORDS SUMMARY | 2019-12-25 19:36 | XMS REPORT | Continuity of Care Document ---
:1945 Author Organization [employer] Care Team Providers Name Role Phone [employer] Unavailable Un available Problems Problem Status Onset Classification Date Comments Sourc e Date Reported Basal cell Active 02/20/2019 [facility] carcinoma of Health shoulder, right Other seborrheic Active 02/18/2019 [facility] keratosis Health History of skin Active 02/18/2019 [facility] B cancer Health Seborrheic Active 02/18/2019 [facility] dermatitis, Health unspecified Irritant Active 02/18/2019 [facility] dermatitis Health Neoplasm of Active 02/18/2019 [facility] uncertain behavior H ealth of skin of back Neoplasm of Active 09/09/2019 [facility] uncertain behavior H ealth of skin History of Active 09/09/2019 [facility] nonmelanoma skin Hea lth cancer Seborrheic Active 09/09/2019 [facility] keratosis Health Atrial Active Problem 10/30/2019 [facility] fibrillation Neuro (disorder) Cervical Active Problem 10/30/2019 [facility] radiculopathy Neuro (disorder) Hypertensive Active Problem 10/30/2019 Mische r disorder, systemic N euro arterial (disorder) Hyperlipidemia Active Problem 10/30/2019 Misc her (disorder) Neuro Lumbar Active Problem 10/30/2019 [facility] radiculopathy Neuro (disorder) Paresthesia Active Problem 10/30/2019 [facility] (finding) Neuro Simple obesity Active Problem 10/30/2019 Misc her (disorder) Neuro Peripheral nerve Active Problem 10/30/2019 [facility] simona disease (disorder) N euro Medications Medication Details Route Status Patient Ordering Order Source Instructions Provider Date pregabalin 50 MG 50 mg = 1 Active Misch er Oral Capsule cap, PO, 020 Neuro [Lyrica] Bedtime, # 30 cap, 3 Refill(s), Pharmacy: [facility] #[id number] Zolpidem 5 mg = 1 Active [facility] tartrate 5 MG tab, PO, 020 Neuro Oral Tablet Bedtime, 0 [Ambien] Refill(s) losartan 100 mg 100 mg = 1 Active Misch er oral tablet tab, PO, 020 Neuro Daily, 0 Refill(s) flecainide 100 100 mg = 1 Active Mische r mg oral tablet tab, PO, 020 Neuro Q12H, 0 Refill(s) amLODIPine 5 mg 5 mg = 1 Active [facility] oral tablet tab, PO, 020 Neuro Daily, 0 Refill(s) triamcinolone Apply to Topical Active [facility] acetonide 0.1 % area(s) 2 017 Health cream (two) times daily as needed for Dermatitis/R elizabeth or Itching. LOSARTAN Take by Oral Active [facility] POTASSIUM mouth. Health (LOSARTAN ORAL) SERTRALINE HCL Take by Oral Active [facility] (ZOLOFT ORAL) mouth. Health flecainide 100 Take 100 mg Oral Active [facility] mg tablet by mouth. Health albuterol 90 ProAir HFA Active [facility] mcg/actuation 90 Health inhaler mcg/actuatio n aerosol inhaler Allergies, Adverse Reactions, Alerts Substance Category Reaction Severity Reaction Status Date Comments S ource type Reported No Known Assertion Drug Misch er Medication allergy Neuro Allergies Immunizations No Data Provided for This Section Results No Data Provided for This Section Pathology Reports No Data Provided for This Section Diagnostic Reports No Data Provided for This Section Consultation Notes No Data Provided for This Section Discharge Summaries No Data Provided for This Section History and Physicals No Data Provided for This Section Vital Signs Vital Sign Value Date Comments Source Systolic (mm Hg) 146 09/10/2019 [facility] Diastolic (mm Hg) 69 09/10/2019 [facility] Heart Rate 66 09/10/2019 [facility] Respitory Rate 16 09/10/2019 [facility] Height 190.5 cm 09/10/2019 [facility] Weight 115.909 09/10/2019 [facility] BMI Calculated 31.94 09/10/2019 [facility] Systolic (mm Hg) 142 07/30/2019 [facility] Diastolic (mm Hg) 73 07/30/2019 [facility] Heart Rate 77 07/30/2019 [facility] Respitory Rate 16 07/30/2019 [facility] Height 190.5 cm 07/30/2019 [facility] Weight 115.909 07/30/2019 [facility] BMI Calculated 31.94 07/30/2019 [facility] Encounters Location Location Encounter Encounter Reason Attending ADM DC Stat us Source Details Type Number For Provider Date Date Visit [facility] Orders Only [id number] No Doctor 02/16 [facility] Unassigned Health [facility] Office [id number] Ron 02/16 02/16 [facility] [id number] Ron 02/19 02/19 [facility] Health Visit [facility] Outpatient [id number] Ruiz Krell 07/30 [facility] Outpatient [id number] Ruiz Krell 07/30 07/31 [facility] /2019 [facility] [place] [facility] Office [id number] Ron 09/08 09/09 [facility] Health Visit [facility] Diana Dan[facility]ref[facility] Outpatient [id number] Ruiz Krell 09/10 [facility] Outpatient [id number] Ruiz Krell 09/10 09/11 [facility] /2019 [facility] [place] Outpatient [id number] Ruiz Krell 10/27 [facility] Outpatient [id number] Ruiz Krell 10/27 10/28 [facility] /2019 [facility] [place] Outpatient [id number] Ruiz Krell 01/18 [facility] Procedures Procedure Code Date Perfomer Comments Source NO SHOW OR MISSED 74037 Doctor [facility] APPOINTMENT POLICY 9 Unassigned ACKNOWLEDGEMENT DERMATOPATHOLOGY 48368 [facility] TISSUE EXAM 9 Rotator cuff repair [id number] [facility] Neuro Assessment and Plan No Data Provided for This Section Plan of Care Plan of Care Date Source Upcoming EncountersDateTypeSpecialtyCare TeamDescription [facility] Health 09/22/2019 Office Visit Ophthalmology Redd Rutledge MD[address] [place] [address].[place], [place] [phone] (Fax) 03/14/2020 Office Visit Dermatology Ron Willams MD301 [facility] [address] [place] [address] [phone] (Fax) Health MaintenanceDu DateLast DoneComments HEPATITIS C (HCV) SCREEN 1945 DTaP,Tdap,and Td Vaccines (1 - Tdap) 1958 COLONOSCOPY 1997 Zoster Recombinant Vaccine (SHINGRIX) (1 of 2) 1997 Medicare Wellness Visit 2012 PNEUMOCOCCAL VACCINES 65+ (1 of 2 - PCV13) 2012 INFLUENZA VACCINE (#1) 2019 03/17/2014 documented as of this encounter Upcoming EncountersDateTypeSpecialtyCare TeamDescription [facility] 09/22/2019 Office Visit Ophthalmology Redd Rutledge MD[address] [place] [address].[place], [place] [phone] (Fax) [facility] MaintenanceDu DateLast DoneComments HEPATITIS C (HCV) SCREEN 1945 DTaP,Tdap,and Td Vaccines (1 - Tdap) 1958 COLONOSCOPY 1997 Zoster Recombinant Vaccine (SHINGRIX) (1 of 2) 1997 Medicare Wellness Visit 2012 PNEUMOCOCCAL VACCINES 65+ (1 of 2 - PCV13) 2012 INFLUENZA VACCINE (#1) 2019 03/17/2014 documented as of this encounter INFLUENZA VACCINE (#1) 2019 [facility] Upcoming EncountersDateTypeSpecialtyCare TeamDescription 02/2019 [facility] 05/18/2019 Office Visit [facility]ermatology [facility] Willams MD[address] [facility] [address] [place] [address] [phone] (Fax) 08/27/2019 Office Visit Dermatology Ron Willams MD[address] [place] [phone] (Fax) 09/22/2019 Office Visit Ophthalmology Redd Rutledge MD700 [facility].[place], [place] [phone] (Fax) Health MaintenanceDue DateLast DoneComments HEPATITIS C (HCV) SCREEN 1945 DTaP,Tdap,and Td Vaccines (1 - Tdap) 1966 COLONOSCOPY 1997 Zoster Recombinant Vaccine (SHINGRIX) (1 of 2) 1997 Medicare Wellness Visit 2012 PNEUMOCOCCAL VACCINES 65+ (1 of 2 - PCV13) 2012 INFLUENZA VACCINE 03/15/2019 documented as of this encounter Upcoming EncountersDateTypeSpecialtyCare TeamDescription 11/2018 [facility] 08/27/2019 Office Visit Dermatology Ron Willams MD301 [facility] [address] [place] [address] [phone] (Fax) 09/22/2019 Office Visit Ophthalmology Redd Rutledge MD[address] [place] [address].[place], [place] [phone] (Fax) Health MaintenanceDu DateLast DoneComments HEPATITIS C (HCV) SCREEN 1945 DTaP,Tdap,and Td Vaccines (1 - Tdap) 1966 COLONOSCOPY 1997 Zoster Recombinant Vaccine (SHINGRIX) (1 of 2) 1997 Medicare Wellness Visit 2012 PNEUMOCOCCAL VACCINES 65+ (1 of 2 - PCV13) 2012 INFLUENZA VACCINE 03/15/2019 documented as of this encounter Upcoming EncountersDateTypeSpecialtyCare TeamDescription 11/2018 [facility] 02/16/2019 Office Visit Dermatology Ron Willams MD301 [facility] [address] [place] [address] [phone] (Fax) Arrived 09/22/2019 Office Visit Ophthalmology Redd Rutledge MDArsen [facility], [place] [phone] (Fax) Health MaintenanceDu DateLast DoneComments HEPATITIS C (HCV) SCREEN 1945 DTaP,Tdap,and Td Vaccines (1 - Tdap) 1966 COLONOSCOPY 1997 Zoster Recombinant Vaccine (SHINGRIX) (1 of 2) 1997 Medicare Wellness Visit 2012 PNEUMOCOCCAL VACCINES 65+ (1 of 2 - PCV13) 2012 INFLUENZA VACCINE 03/15/2019 documented as of this encounter PNEUMOCOCCAL VACCINES 65+ (1 of 2 - PCV13) 2012 [facility] Medicare Wellness Visit 2012 [facility] Zoster Recombinant Vaccine (SHINGRIX) (1 of 2) 1997 [facility] Health COLONOSCOPY 1997 [facility] DTaP,Tdap,and Td Vaccines (1 - Tdap) 1966 [facility] DTaP,Tdap,and Td Vaccines (1 - Tdap) 1958 [facility] HEPATITIS C (HCV) SCREEN 1945 [facility] HEPATITIS C (HCV) SCREEN 1945 [facility] Social History Social History Date Source Social History TypeResponse 10/28/2019 [facility] Smoking Status Former smoker; Exposure to Tobacco Smoke Unable to obtain; Cigarette Smoking Last 365 Days No; Reg Smoking Cessation Counseling No entered on: 10/28/19 Tobacco UseTypesPacks/DayYears UsedDate 09/08/2019 [facility] Never Smoker Smokeless Tobacco: Never Used Alcohol UseDrinks/Weekoz/WeekComments Yes 0 Standard drinks or equivalent 0.0 Sex Assigned at BirthDate Recorded Not on file Job Start DateOccupationIndustry Not on file Not on file Not on file Travel HistoryTravel StartTravel End No recent travel history available. documented as of this encounter Family History No Data Provided for This Section Advance Directives No Data Provided for This Section Functional Status No Data Provided for This Section
--- OUTSIDE RECORDS SUMMARY | 2019-12-25 19:36 | XMS REPORT | Summary of Care ---
:1945 Author Organization [facility] Neurology [place] Address [address] [place] [address]- phone Encounter HQ Gerntr_rosa(FIN) [id number] Date(s): 10/28/19 - 10/28/19 [facility] [address] [place] [address]- [phone] Discharge Disposition: Home or Self Care Attending Physician: Ruiz Christy MD Referring Physician: Ruiz Christy MD Vital Signs No data available for this section Problem List Condition Effective Dates Status Health Status Informant A-fib(Confirmed) Active Cervical radiculopathy(Confirmed) Active HTN - Hypertension(Confirmed) Active Hyperlipidemia(Confirmed) Active Lumbar radiculopathy(Confirmed) Active Paresthesia(Confirmed) Active Peripheral neuropathy(Confirmed) Active Simple obesity(Confirmed) Active Allergies, Adverse Reactions, Alerts No Known Medication Allergies Medications Ambien 5 mg oral tablet 5 mg = 1 tab, PO, Bedtime, 0 Refill(s) Start Date: 10/28/19 Status: OrderedLyrica 50 mg oral capsule 50 mg = 1 cap, PO, Bedtime, # 30 cap, 3 Refill(s), Pharmacy: [facility] #[id number] Start Date: 10/28/19 Stop Date: 02/25/20 Status: Ordered Results No data available for this section Immunizations No data available for this section Procedures Procedure Date Related Diagnosis Body Site Status Rotator cuff repair Complete d Social History Social History Type Response Smoking Status Former smoker; Exposure to T obacco Smoke Unable to obtain; Cigarette Smoking Last 365 Days No; Reg Smoking Cessation Counseling No entered on: 10/28/19 Assessment and Plan No data available for this section
[2019-12-25 20:15] LABS: Protime INR 1.03
[2019-12-25 20:17] LABS: Absolute Lymphocytes (CBC) 2.5 K/uL (0.7-4.9); Lymphocytes % 35.8 % (15.3-44.8); RBC Red Blood Cell Count 4.18 M/uL (4.33-5.43)
[2019-12-25 20:27] LABS: ALT/SGPT 23 U/L (12-78); AST/SGOT 15 U/L (15-37); Alkaline Phosphatase 62 U/L (45-117); BUN Blood Urea Nitrogen 24 mg/dL (7-18); Bicarbonate 27 mmol/L (21-32); Bilirubin Direct < 0.1 mg/dL (0-0.2); Bilirubin Total 0.3 mg/dL (0.2-1.0); Glucose Level 115 mg/dL (74-106); NT PRO-BNP 108 pg/mL (<125); Potassium 4.1 mmol/L (3.5-5.1); Protein, Total 7.6 g/dL (6.4-8.2); Sodium Level 142 mmol/L (136-145); Troponin (Emerg Dept Use Only) 0.04 ng/mL (0.0-0.045)
[2019-12-25] MEDS ORDERED: ONDANSETRON 4 MG/2 ML VIAL ONE (20:34)
[2019-12-25] MEDS ORDERED: MORPHINE 2 MG/ML SYR ONE (20:34)
--- NOTE | 2019-12-25 20:37 | ER ---
Nurse's Notes [facility] Name: Irvin Ramirez Jr Age: 74 yrs Sex: Male : 1945 Arrival Date: 12/25/2019 Time: 19:35 Bed 6 Private MD: Diagnosis: Other chest pain Presentation: 12/24 19:43 Chief complaint: Patient states: Chest pain, mid sternal, radiating to the L scapular ca1 area started about an hour ago. Denies SOB, N/V, lightheaded. History of A-fib. Denies previous heart attack. Coronavirus screen: Proceed with normal triage. Patient denies a cough. Patient denies shortness of breath or difficulty breathing. Patient denies measured and/or subjective temperature greater than 100.4F prior to today's visit. Patient denies travel on a cruise ship or to a country the [facility] currently lists as an affected area. Patient denies contact with known and/or suspected case of COVID-19. Ebola Screen: Patient negative for fever greater than or equal to 101.5 degrees Fahrenheit, and additional compatible Ebola Virus Disease symptoms Patient denies exposure to infectious person. Patient denies travel to an Ebola-affected area in the 21 days before illness onset. No symptoms or risks identified at this time. Initial Sepsis Screen: Does the patient meet any 2 criteria? No. Patient's initial sepsis screen is negative. Does the patient have a suspected source of infection? No. Patient's initial sepsis screen is negative. Risk Assessment: Do you want to hurt yourself or someone else? Patient reports no desire to harm self or others. Onset of symptoms was December 25, 2019 at 18:45. 19:43 Method Of Arrival: Wheelchair ca1 19:43 Acuity: MARIBEL 3 ca1 Historical: - Allergies: 19:46 No Known Allergies; ca1 - Home Meds: 19:46 losartan 100 mg oral tab 1 tab once daily [Active]; amlodipine 5 mg tab 1 tab once ca1 daily [Active]; - PMHx: 19:46 Atrial Fib; Hypertension; ca1 - PSHx: 19:46 Cholecystectomy; TBI; titanium ribs (L side); ca1 - Immunization history:: Adult Immunizations up to date. - Social history:: Smoking status: Patient/guardian denies using tobacco, the patient reports quitting approximately 30 years ago. Screenin:55 Abuse screen: Denies threats or abuse. Nutritional screening: No deficits noted. tl2 Tuberculosis screening: No symptoms or risk factors identified. Fall Risk None identified. Assessment: 19:55 General: Appears in no apparent distress. comfortable, Behavior is calm, cooperative, tl2 appropriate for age. Pain: Complains of pain in chest Pain does not radiate. Pain currently is 3 out of 10 on a pain scale. at worst was 9 out of 10 on a pain scale. Quality of pain is described as sharp, Pain began 2 hours ago. Neuro: Level of Consciousness is awake, alert, obeys commands, Oriented to person, place, time, situation. Cardiovascular: Denies diaphoresis, lightheadedness, nausea, Rhythm is sinus rhythm Chest pain is described as diffuse, quality is sharp, is located in anterior began 2 hours prior to arrival. Respiratory: Airway is patent Respiratory effort is even, unlabored, Respiratory pattern is regular, symmetrical. GI: No signs and/or symptoms were reported involving the gastrointestinal system. Derm: Skin is dry, Skin is pink, warm \T\ dry. Vital Signs: 19:43 BP 162 / 85; Pulse 76; Resp 16 S; Temp 97.6(TE); Pulse Ox 98% on R/A; Weight 115.67 kg tl2 (R); Height 6 ft. 3 in. (190.50 cm) (R); Pain 3/10; 20:14 BP 127 / 71; Pulse 73; Resp 18; Pulse Ox 97% on R/A; tl2 21:35 BP 128 / 82; Pulse 92; Resp 18; Pulse Ox 98% on R/A; tl2 19:43 Body Mass Index 31.87 (115.67 kg, 190.50 cm) tl2 ED Course: 19:35 Patient arrived in ED. ds1 19:45 Triage completed. ca1 19:46 Arm band placed on right wrist. ca1 19:47 Simon Luu MD is Attending Physician. tw4 19:52 Rajni Ward RN is Primary Nurse. tl2 19:53 Inserted saline lock: 20 gauge in right antecubital area, using aseptic technique. tl2 Blood collected. 19:55 Patient has correct armband on for positive identification. Placed in gown. Bed in low tl2 position. Call light in reach. Side rails up X2. Adult w/ patient. monitor technician on. Pulse ox on. NIBP on. 19:55 Patient maintains SpO2 saturation greater than 95% on room air. tl2 20:23 XRAY Chest (1 view) In Process Unspecified. EDMS 20:36 Jacky Guillen MD is Hospitalizing Provider. tw4 21:49 No provider procedures requiring assistance completed. IV is patent, with fluids rv infusing freely, with good blood return, Patient admitted, IV remains in place. Administered Medications: 20:31 Drug: morphine 2 mg Route: IVP; Site: right antecubital; tl2 20:31 Drug: Zofran (Ondansetron) 4 mg Route: IVP; Infused Over: 2 mins; Site: right tl2 antecubital; Point of Care Testing: Blood Glucose: 21:35 Blood Glucose: 214 mg/dL; tl2 Ranges: Outcome: 20:36 Decision to Hospitalize by Provider. tw4 21:49 Admitted to Med/surg accompanied by tech, via wheelchair, room 207. rv 21:49 Condition: good 21:49 Instructed on the need for admit. 21:49 Patient left the ED. rv Signatures: Dispatcher [employer] EDAR Peri Christian ds1 Rajni Ward RN RN tl2 Simon Luu MD MD tw4 Saad Trammell RN RN rv Sylvie Grady RN RN ca1 Corrections: (The following items were deleted from the chart) 20:14 19:43 Pulse 76bpm; Resp 16bpm; Spontaneous; Pulse Ox 98% RA; Temp 97.6F Temporal; tl2 115.67 kg Reported; Height 6 ft. 3 in. Reported; BMI: 31.8; Pain 3/10; ca1
--- NOTE | 2019-12-25 20:37 | EDPHYS ---
Physician Documentation [facility] Name: Irvin Ramirez Jr Age: 74 yrs Sex: Male : 1945 Arrival Date: 12/25/2019 Time: 19:35 Bed 6 Private MD: ED Physician Simon Luu HPI: 12/24 19:58 This 74 yrs old Male presents to ER via Wheelchair with complaints of Chest tw4 Pain. 19:58 The patient or guardian reports chest pain that is located primarily in the anterior tw4 chest wall. Onset: today. The pain does not radiate. Associated signs and symptoms: The patient has no apparent associated signs or symptoms. The chest pain is described as dull, sharp. Duration: The patient or guardian reports a single episode. Severity of pain: At its worst the pain was severe a 10 / 10 in the emergency department the pain has improved is a 3 / 10. The patient has not experienced similar symptoms in the past. Historical: - Allergies: 19:46 No Known Allergies; ca1 - Home Meds: 19:46 losartan 100 mg oral tab 1 tab once daily [Active]; amlodipine 5 mg tab 1 tab once ca1 daily [Active]; - PMHx: 19:46 Atrial Fib; Hypertension; ca1 - PSHx: 19:46 Cholecystectomy; TBI; titanium ribs (L side); ca1 - Immunization history:: Adult Immunizations up to date. - Social history:: Smoking status: Patient/guardian denies using tobacco, the patient reports quitting approximately 30 years ago. ROS: 19:58 Constitutional: Negative for fever, chills, and weight loss, Eyes: Negative for injury, tw4 pain, redness, and discharge, Respiratory: Negative for shortness of breath, cough, wheezing, and pleuritic chest pain, Abdomen/GI: Negative for abdominal pain, nausea, vomiting, diarrhea, and constipation, Back: Negative for injury and pain, MS/Extremity: Negative for injury and deformity, Skin: Negative for injury, rash, and discoloration, Neuro: Negative for headache, weakness, numbness, tingling, and seizure. 19:58 Cardiovascular: Positive for chest pain, Negative for edema, orthopnea, palpitations, paroxysmal nocturnal dyspnea. Exam: 19:58 Constitutional: This is a well developed, well nourished patient who is awake, alert, tw4 and in no acute distress. Head/Face: Normocephalic, atraumatic. Chest/axilla: Normal chest wall appearance and motion. Nontender with no deformity. No lesions are appreciated. Cardiovascular: Regular rate and rhythm with a normal S1 and S2. No gallops, murmurs, or rubs. Normal PMI, no JVD. No pulse deficits. Respiratory: Lungs have equal breath sounds bilaterally, clear to auscultation and percussion. No rales, rhonchi or wheezes noted. No increased work of breathing, no retractions or nasal flaring. Abdomen/GI: Soft, non-tender, with normal bowel sounds. No distension or tympany. No guarding or rebound. No evidence of tenderness throughout. Back: No spinal tenderness. No costovertebral tenderness. Full range of motion. MS/ Extremity: Pulses equal, no cyanosis. Neurovascular intact. Full, normal range of motion. Neuro: Awake and alert, GCS 15, oriented to person, place, time, and situation. Cranial nerves II-XII grossly intact. Motor strength 5/5 in all extremities. Sensory grossly intact. Cerebellar exam normal. Normal gait. Vital Signs: 19:43 BP 162 / 85; Pulse 76; Resp 16 S; Temp 97.6(TE); Pulse Ox 98% on R/A; Weight 115.67 kg tl2 (R); Height 6 ft. 3 in. (190.50 cm) (R); Pain 3/10; 20:14 BP 127 / 71; Pulse 73; Resp 18; Pulse Ox 97% on R/A; tl2 21:35 BP 128 / 82; Pulse 92; Resp 18; Pulse Ox 98% on R/A; tl2 19:43 Body Mass Index 31.87 (115.67 kg, 190.50 cm) tl2 MDM: 20:36 Patient medically screened. tw4 21:35 Data reviewed: vital signs, nurses notes. Counseling: I had a detailed discussion with tw4 the patient and/or guardian regarding: the historical points, exam findings, and any diagnostic results supporting the discharge/admit diagnosis. Special discussion: I discussed with the patient/guardian in detail that at this point there is no indication for admission to the hospital. It is understood, however, that if the symptoms persist or worsen the patient needs to return immediately for re-evaluation. 12/24 19:49 Order name: Basic Metabolic Panel; Complete Time: 20:35 [facility] 12/24 20:35 Interpretation: Normal except: CL 110; BUN 24; GLUC 115; GFR 64. tw12/24 19:49 Order name: CBC with Diff; Complete Time: 20:35 [facility] 12/24 20:35 Interpretation: Normal except: RBC 4.18. 12/24 19:49 Order name: LFT's; Complete Time: 20:35 [facility] 12/24 20:35 Interpretation: Normal except: GLOB 3.6. 12/24 19:49 Order name: Magnesium; Complete Time: 20:35 [facility] 12/24 20:35 Interpretation: Within normal limits: MG 2.0. tw 12/24 19:49 Order name: NT PRO-BNP; Complete Time: 20:35 [facility] 12/24 20:35 Interpretation: Within normal limits: NT PRO-BNP 108. [facility] 12/24 19:49 Order name: PT-INR; Complete Time: 20:35 [facility] 12/24 20:35 Interpretation: Within normal limits: PT 12.2. tw12/24 19:49 Order name: Troponin (emerg Dept Use Only); Complete Time: 20:35 [facility] 12/24 20:35 Interpretation: Within normal limits: TROPED 0.04. [facility] 12/24 20:44 Order name: Basic Metabolic Panel [facility] 12/24 20:44 Order name: Basic Metabolic Panel [facility] 12/24 20:44 Order name: CBC with Automated Diff [facility] 12/24 20:44 Order name: CBC with Automated Diff [facility] 12/24 20:44 Order name: Troponin I [facility] 12/24 20:44 Order name: Troponin I [facility] 12/24 20:44 Order name: Troponin I [facility] 12/24 19:49 Order name: XRAY Chest (1 view) [facility] 12/24 19:49 Order name: EKG; Complete Time: 19:50 tw 12/24 19:49 Order name: Cardiac monitoring; Complete Time: 19:53 [facility] 12/24 19:49 Order name: EKG - Nurse/Tech; Complete Time: 19:53 12/24 19:49 Order name: IV Saline Lock; Complete Time: 19:53 tw 12/24 19:49 Order name: Labs collected and sent; Complete Time: 19:53 tw4 12/24 19:49 Order name: O2 Per Protocol; Complete Time: 19:53 tw4 12/24 19:49 Order name: O2 Sat Monitoring; Complete Time: 19:53 tw4 12/24 20:44 Order name: EKG Electrocardiogram [facility] 12/24 20:44 Order name: EKG Electrocardiogram [facility] 12/24 20:44 Order name: EKG Electrocardiogram [facility] 12/24 20:44 Order name: EKG Electrocardiogram [facility] EC:58 Rate is 69 beats/min. Rhythm is regular with Right bundle branch block. QRS Jackson is tw4 Normal. [place] interval is normal. QRS interval is normal. QT interval is normal. No Q waves. T waves are Normal. No ST changes noted. Clinical impression: NSR w/ Non-specific ST/T Changes. Interpreted by me. Reviewed by me. Administered Medications: 20:31 Drug: morphine 2 mg Route: IVP; Site: right antecubital; tl2 20:31 Drug: Zofran (Ondansetron) 4 mg Route: IVP; Infused Over: 2 mins; Site: right tl2 antecubital; Point of Care Testing: Blood Glucose: 21:35 Blood Glucose: 214 mg/dL; tl2 Ranges: Critical Glucose Levels:Adult <50 mg/dl or >400 mg/dl <40 mg/dl or >180 mg/dl Disposition: 12/25/19 20:36 Hospitalization ordered by Jacky Guillen for Observation. Preliminary diagnosis is Other chest pain. - Bed requested for Telemetry/MedSurg (observation). - Status is Observation. rv - Condition is Stable. - Problem is new. - Symptoms have improved. Signatures: Dispatcher [employer] Alma Delia Phelps RN RN cg Rajni Ward RN RN tl2 Simon Luu MD MD tw4 Saad Trammell RN RN rv Acob, Cheryl, RN RN ca1 Corrections: (The following items were deleted from the chart) 20:55 20:36 Hospitalization Ordered by Jacky Guillen MD for Observation. Preliminary diagnosis cg is Other chest pain. Bed requested for Telemetry/MedSurg (observation). Status is Observation. Condition is Stable. Problem is new. Symptoms have improved. tw4 21:49 20:55 12/25/2019 20:36 Hospitalization Ordered by aJcky Guillen MD for Observation. rv Preliminary diagnosis is Other chest pain. Bed requested for Telemetry/MedSurg (observation). Status is Observation. Condition is Stable. Problem is new. Symptoms have improved. cg
--- NOTE | 2019-12-25 20:38 | RAD REPORT ---
EXAM DESCRIPTION: RAD - Chest Single View - 12/25/2019 8:23 pm CLINICAL HISTORY: CHEST PAIN COMPARISON: March 2019 TECHNIQUE: AP portable chest image was obtained 12/25/2019 8:23 pm . FINDINGS: No peripheral mass consolidation. Lung volumes are low compared to the prior study. Inters titial pattern matches comparison. Heart and vasculature are normal. No measurable pleural effusion a nd no pneumothorax. No acute bone findings seen. A right shoulder prosthesis is present only partiall y imaged. Patient has hardware from prior left rib and left clavicle fracture repair. No acute aortic findings suspected. IMPRESSION: No acute cardiopulmonary process. No significant change from comparison.
[2019-12-25 22:36] VITALS: BMI 32.3
[2019-12-26 05:16] LABS: Absolute Lymphocytes (CBC) 2.2 K/uL (0.7-4.9); Hematocrit 36.3 % (39.6-49.0); Lymphocytes % 42.1 % (15.3-44.8); MPV 7.9 fL (7.6-11.3); RBC Red Blood Cell Count 3.73 M/uL (4.33-5.43)
[2019-12-26 06:03] LABS: Potassium 4.5 mmol/L (3.5-5.1)
[2019-12-26] MEDS ORDERED: HOME MED 1 EA UNK (Losartan Potassium [Cozaar] 100 MG) PO SCH (08:00)
[2019-12-26] MEDS: LOSARTAN POTASSIUM 50 MG TABLET PO SCH (08:00)
[2019-12-26] MEDS: ENOXAPARIN 100 MG/ML SYR SQ SCH ×2 (09:23→20:45)
[2019-12-26] MEDS: ASPIRIN EC 81 MG TAB PO SCH (09:25)
[2019-12-26] MEDS: FLECAINIDE 100 MG TAB PO SCH ×2 (09:25→20:45)
--- NOTE | 2019-12-26 14:55 | HP ---
Date of Admission: 12/26/2019 Chief Complaint: Chest pain. History Of Present Illness: This is a 74-year-old very pleasant male patient who was fishing yesterd ay morning, came home and during early evening hours he was sitting at home and around 5:30 p.m. or s o, patient reports that he started to have chest pain just in the left parasternal region and the james n had radiated to his left scapular region. The pain lasted altogether for about 2-1/2 hours. It wo uld increase and decrease in severity on its own. Describes as heaviness pressure type of feeling. No associated nausea or sweating, but felt like he had hard time taking deep breath. He decided to c ome to the emergency room as he never had any such chest pain problem before. After he was evaluated in the ER, he was admitted to the hospital. Patient became pain-free after his admission to there. He has not had any recurrence of pain. Review of Systems: Cardiovascular: As mentioned above. All other systems reviewed and negative. Allergies: NO KNOWN ALLERGIES. Medications: Amlodipine 5 mg daily at bedtime, aspirin 81 mg daily, flecainide 100 mg, losartan 100 mg, and Ambien 5 mg at bedtime as needed for sleep. He takes losartan 100 mg daily morning. Past Medical History: Significant for asthma for which he takes no medication. Past medical history also significant for impaired fasting glucose, hypertension, mixed hyperlipidemia, paroxysmal atrial fibrillation, abdominal aortic aneurysm, nonalcoholic fatty liver disease, and insomnia. 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 Family History: Father had myocardial infarction. Social History: History of heavy smoking, not at present time as he quit several years ago. Alcohol use, he enjoys 2 glasses of wine daily. Physical Examination: Vital Signs: Temperature 97, pulse 75, respiratory rate 20, blood pressure 172/79, oxygen saturation 95%. Height 6 feet 3 inches, weight 258 pounds. General: Awake, alert, oriented, not in distress. HEENT: Head atraumatic, normocephalic. Conjunctivae nonerythematous. Sclerae white. Mouth, no thr ush or edema noted. Ears/Nose, no mass, lesion, discharge noted. Neck: Supple. No JVD, lymph nodes, bruit, thyromegaly noted. Lungs: Bilateral good equal air entry. Clear to auscultation. No rhonchi. No rales. Heart: Normal heart sounds, no murmur or gallop. Abdomen: Soft, bowel sounds normal. No guarding, rigidity, tenderness, mass, hepatosplenomegaly, di stention, or bruit noted. Extremities: No leg edema. No calf tenderness. Skin: No rash, ulcer, cellulitis. Lymphatics: No lymph node enlargement in neck, supraclavicular, infraclavicular region. Neuro: No focal neurological deficit. Chest: Unremarkable. External Genitalia: Deferred. Rectal: Deferred. Laboratory Data: Yesterday, white count 6.9, hemoglobin 14, platelets 204. This morning, white coun t 5.3, hemoglobin 12.5, platelets 171. Yesterday, sodium 142, potassium 4.1, chloride 110, bicarb 27 , BUN 24, creatinine 1.13, glucose 115. Liver function tests unremarkable. Initial troponin 0.04, s econd troponin 0.55, third troponin 1.27. This morning, sodium 144, potassium 4.5, chloride 112, bic arb 26, BUN 22, creatinine 0.97, glucose 112. Chest x-ray, no acute cardiopulmonary changes. No acu te ST-T changes. Impression: 1.Non-ST segment elevation myocardial infarction. 2.Hypertension. 3.Mixed hyperlipidemia. 4.Impaired fasting glucose. 5.Abdominal aortic aneurysm. 6.Nonalcoholic fatty liver disease. 7.Insomnia. Plan: We will go ahead and admit the patient to hospital for further evaluation and management of th is problem. Patient is appropriate for inpatient and is expected to spend 2 midnights in hospital. We will continue aspirin therapy. Add Lovenox per order. Continue home medications per order. Cons ult Cardiology and details were discussed with high scaler this morning. Patient will have cardiac cath on Saturday, which is day after tomorrow and different possibilities in terms of intervention like need for stent placement versus bypass surgery versus medical management. All those different optio ns discussed with him and it will depend on findings of the cardiac cath results and he understands a nd agrees to proceed with the plan and high scaler will discuss more details with him as well. Pina ent will remain on telemetry. We will get a lipid profile done tomorrow morning. Patient will recei ve high dose statin therapy. ANN/MODL Voice ID: [id number]
[2019-12-26] MEDS: AMLODIPINE 5 MG TAB PO SCH (20:45)
[2019-12-27] MEDS: ENOXAPARIN 100 MG/ML SYR SQ SCH (09:20)
[2019-12-27] MEDS: ASPIRIN EC 81 MG TAB PO SCH (09:20)
[2019-12-27] MEDS: FLECAINIDE 100 MG TAB PO SCH ×2 (09:20→21:08)
[2019-12-27] MEDS: LOSARTAN POTASSIUM 50 MG TABLET PO SCH (09:20)
--- NOTE | 2019-12-27 10:35 | RAD REPORT ---
EXAM DESCRIPTION: US - Abdomen Exam Complete - 12/27/2019 10:04 am CLINICAL HISTORY: AAA COMPARISON: Abdomen W Contrast dated 09/26/2018 FINDINGS: Gallbladder is absent. Common bile duct is normal with no common duct stone identified. Liver and spleen are normal size. Coarsened liver echotexture is consistent with a mild fatty infiltr ation. No solid mass lesions seen. A small 6 mm subcapsular left lobe cyst identified. No portal vein abnormality. No focal lesions of the spleen. The pancreas is obscured at the head and tail by bowel gas. No hydronephrosis or suspicious mass in either kidney. A 14 millimeter exophytic right renal cyst is present. Aortic aneurysm is identified approximately 3.2 cm in maximum dimension. This is slightly smaller radha n the maximum transverse diameter on the 2019 study. Differential is likely due to differences of mod ality. Aneurysm has not grown. No IVC abnormality. No ascites or bulky lymphadenopathy. IMPRESSION: Patient has a known abdominal aortic aneurysm. This measures 3.2 cm on the current exami nation. Remeasurement of the aneurysm shows a maximum 3.5 centimeter diameter on the CT study. Aneurysm size differential is due to differences in modality. There is no growth in the aneurysm sinc e the September 2018 CT study. Pancreas is partially obscured by bowel gas. Mild fatty infiltration of the liver similar to prior imaging. Additional above detailed findings als o without change from September 2018.
--- NOTE | 2019-12-27 16:33 | PN ---
Date of Progress Note: 12/27/2019 Subjective: Patient was seen this morning for followup. No new complaints or problems reported by jim jarquin. No recurrence of chest pain yesterday. No symptoms yesterday. Objective: Vital Signs: Reviewed. HEENT: Unremarkable. Lungs: Clear to auscultation. Heart: Sounds normal. Abdomen: Soft. Bowel sounds normal. No guarding, rigidity, tenderness, or distention. Extremities: No leg edema. Laboratory Data: Triglycerides 125, total cholesterol 125, LDL 67, HDL 33. Impression: 1.Oeb-[id number] myocardial infarction. 2.Hypertension. Plan: We will go ahead and continue current antihypertensive medication. Blood pressure is stable. Continue aspirin and Lovenox. Patient will have cardiac cath tomorrow. I have asked charge nurse t o contact orientor to see if orientor wants patient to receive evening dose of Lovenox or not considering he is going for cardiac cath tomorrow morning. Details and plan of treatment discussed with the patient. Patient had question about postop instructions and we talked about that also saad alba on if he has cardiac cath from radial artery or femoral artery approach instruction would vary a nd all those details were discussed with him. ANN/MODL Voice ID: [id number] Report ID: [id number]
[2019-12-27 20:22] LABS: Hematocrit 40.9 % (39.6-49.0); Lymphocytes % 26.2 % (15.3-44.8); RBC Red Blood Cell Count 4.19 M/uL (4.33-5.43)
[2019-12-27 20:28] LABS: Protime INR 1.03
[2019-12-27] MEDS ORDERED: HEPARIN/D5W 25,000 UNIT/500 ML BAG IV SCH (21:00)
[2019-12-27] MEDS: AMLODIPINE 5 MG TAB PO SCH (21:06)
[2019-12-28 05:41] LABS: Absolute Lymphocytes (CBC) 2.1 K/uL (0.7-4.9); Basophils % 0.8 % (0-1.3); Hematocrit 37.6 % (39.6-49.0); Lymphocytes % 33.6 % (15.3-44.8); MPV 7.9 fL (7.6-11.3); RBC Red Blood Cell Count 3.88 M/uL (4.33-5.43)
[2019-12-28] MEDS ORDERED: HEPA 1000U/500MLS 2,000 UNIT/1,000 ML BAG IV ONE (07:14)
[2019-12-28] MEDS ORDERED: LIDOCAINE 1% MPF 30 ML VIAL ONE (07:14)
[2019-12-28] MEDS: ENOXAPARIN 100 MG/ML SYR SQ SCH (07:20)
[2019-12-28] MEDS: ASPIRIN EC 81 MG TAB PO SCH (07:26)
[2019-12-28] MEDS: LOSARTAN POTASSIUM 50 MG TABLET PO SCH (07:26)
[2019-12-28] MEDS: FLECAINIDE 100 MG TAB PO SCH ×2 (07:27→20:42)
[2019-12-28] MEDS ORDERED: HEPARIN 5000 UNIT/ML 1 ML VIAL ONE ×2 (07:37→07:39)
[2019-12-28] MEDS ORDERED: MIDAZOLAM HCL 2 MG/2 ML INJ ONE ×3 (07:37→08:18)
[2019-12-28] MEDS ORDERED: NITROGLYCERIN 100 MCG/ML SYR (for cath lab use only) IV ONE (07:38)
[2019-12-28] MEDS ORDERED: NICARDIPINE HCL 25 MG/10 ML IV ONE (07:38)
[2019-12-28] MEDS ORDERED: NITROGLYCERIN/D5W 25 MG/250 ML BTL IV ONE (07:38)
[2019-12-28] MEDS ORDERED: FENTANYL CITR 100 MCG/2 ML ONE (07:38)
[2019-12-28] MEDS ORDERED: NA CHLORIDE 0.9% 500 ML ONE (08:10)
[2019-12-28] MEDS ORDERED: TICAGRELOR 90 MG TABLET PO ONE (09:03)
--- NOTE | 2019-12-28 12:34 | OP ---
Date of Procedure: 12/28/2019 Surgeon: GERHARD JOHNSON Procedure: 1.Selective coronary angiogram. 2.Percutaneous coronary intervention of severe mid left anterior descending stenosis, which is a cul prit for the myocardial infarction. Lesion length was 12 mm. PERRY-3 flow before and after PCI, 95% stenosis and post PCI 0% residual stenosis. We used 2.75 x 60 mm Synergy drug-eluting stent. Indication: Acute non-ST elevation myocardial infarction. Access: Right ulnar artery closed with TR band. Complications: None. Bleeding: Less than 10 mL. Total Sedation Time: 45 minutes. Poultry Picker: Anam León M.D. Secondary Surgeon: Gerhard Johnson. Description Of Procedure: After risks, benefits, and alternatives were explained to the patient, he signed informed consent and he was brought into the cardiac catheterization laboratory, prepped and d raped in the usual sterile fashion. Then, we accessed the right ulnar artery using ultrasound guidan ce and the pediatric micropuncture kit and we took a [place] catheter over a J-wire into the aortic santosh t, engaged left main coronary artery, then right coronary artery and took standard views, found to marte ve severe mid LAD stenosis, which is a culprit for the myocardial infarction, decided to proceed for intervention. Intervention Details: The patient was given systemic heparin to assure ACT level above 250 throughou t the procedure. Then, we took a 6-Maori 3.5 EBU guide into the aortic root, engaged the left main coronary artery and took a short run-through wire and we crossed the stenosis of the LAD and we took a 2.5 x 12 mm Compliant balloon into high-pressure, pre-dilated the lesion very well and then took 2. 75 x 60 mm Synergy drug-eluting stent deployed across the stenosis with excellent results. Residual stenosis of 0% and no complications. Findings: 1.Severe mid LAD stenosis, 95%, which is the culprit for the myocardial infarction, status post PCI as above. 2.Mild proximal LAD disease and mild distal LAD disease. Recommend aggressive medical treatment for that. 3.Rest of coronary arteries are normal without any significant stenosis. Recommendation: 1.The patient was given 180 mg of Brilinta in the energy systems laboratory director. Continue 90 mg q.12 hours, first dose t onight at 9 p.m. Continue aspirin 81 mg daily and high-dose statin. Recommend 80 of Lipitor or 40 o f Crestor. 2.Observe for the next 24 hours, if stable can be discharged and follow up with me in the office in 4 weeks. /DAMARIS Voice ID: [id number] Report ID: [id number]
[2019-12-28] MEDS ORDERED: ZOLPIDEM TARTRATE 5 MG TABLET PO PRN (12:41)
--- NOTE | 2019-12-28 16:08 | CON ---
Date of Consultation: 12/26/2019 Reason For Consultation: Chest pain and elevated troponin. History Of Present Illness: This is a 74-year-old male with history of atrial fibrillation and hyper tension, presented to the emergency room after an episode of chest pain that started at 5:30 on the e vening prior to presentation to the hospital. The pain is retrosternal, pressure-like, radiates to t he neck and upper extremities, lasted for 1 hour and then kept happening on and off until about 8:30. After that patient said it completely disappeared, never came back. Also, patient claimed that his activities have been limited with chest pain that has become more frequent lately. Patient felt sli ghtly nauseated. No vomiting. No sweats. There are no other provoking or relieving factors. Denie s having any other complaints. Past Medical History: Atrial fibrillation and hypertension. Medications: Refer to reconciliation sheet for detailed list. Social History: Ex-smoker, smoked since age 14 until age 44 and quit then. Does not drink, but no o ccasions . Does not use any drugs. Family History: No mention of coronary artery disease or cancer. Review of Systems: All systems reviewed and were negative, except for mentioned in the HPI. Physical Examination: Vital Signs: Temperature is 96.8, pulse 63, breathing at 12, blood pressure 121/60, saturating 95%. General: Pleasant middle-aged male in no apparent distress. Head and Neck: Pupils are equal and reactive to light. Intact eye movements. No JVD. No cervical lymphadenopathy. Neck is supple. Thyroid is not enlarged. Lungs: Clear to auscultation bilaterally. No rhonchi, rales, or crackles. No accessory muscle use. Heart: Regular rate and rhythm. No extra sounds. Abdomen: Soft, nontender. Bowel sounds positive. No organomegaly. No masses or hernia. No rigidi ty or rebound. Extremities: No edema, clubbing, or cyanosis. Intact pulses. Skin: No rashes. Neuro: Alert, awake, and oriented x3. No acute focal deficits appreciated. Lymph Nodes: No cervical adenopathy. Investigations: Labs were reviewed. His total troponin was 1.27. Creatinine 0.97. LDL cholesterol is 67. Assessment And Plan: 1.Non ST elevation myocardial infarction. EKG without specific ST-T wave abnormalities. Start him on anticoagulation with IV heparin. Aspirin 81 mg daily and high-dose statin. We will schedule him for coronary angiogram Saturday unless he becomes unstable or develops dynamic EKG changes. Sarabjit hanks will be monitored over the weekend for coronary angiogram on Saturday. Risks, benefits, and alternatives were explained to the patient who agreed with the procedure and signed informed cons ent. 2.Hypertension. Blood pressure is controlled. Continue current medications. 3.Atrial fibrillation. Patient at this point is stable from this medical issue. Continue to alex howard SR/DAMARIS Voice ID: [id number] Report ID: [id number]
--- NOTE | 2019-12-28 16:10 | PN ---
Date of Progress Note: 12/27/2019 Subjective: Seen at bedside. He is chest pain free. Review of Systems: No chest pain, shortness of breath, orthopnea, or cough. No nausea, vomiting, diarrhea. No abdomina l pain. No history of urinary urgency. No skin rash or headache. All other systems reviewed and we re negative. Physical Examination: Vital Signs: Temperature is 96.9, pulse 60, breathing at 18, blood pressure 110/62, saturating 98%. General: Pleasant elderly male, in no apparent distress. Head and Neck: Pupils are equal, reactive to light. Intact eye movements. No JVD. No cervical lym phadenopathy. Neck supple. Thyroid is not enlarged. Lungs: Clear to auscultation bilaterally. No rhonchi, rales, or crackles. No accessory muscle use. Heart: Regular rate and rhythm. No extra sounds. Abdomen: Soft, nontender. Bowel sounds positive. No organomegaly. No masses or hernia. No rigidi ty or rebound. Extremities: No edema, clubbing, cyanosis. Intact pulses. Skin: No rashes. Neurologic: Alert, awake, oriented x3. No acute focal deficits appreciated. Lymph Nodes: No cervical or axillary lymphadenopathy. Investigations: Creatinine 0.97. Troponin peaked at 1.7. Assessment/plan: 1.Non-ST elevation myocardial infarction. Stable. No further chest pain. Scheduled for coronary a ngiogram tomorrow morning. Nothing to eat or drink past midnight. 2.Hypertension. Blood pressure is controlled. Continue current management. 3.Atrial fibrillation. Continue current treatment. SR/MODL Voice ID: [id number] Report ID: [id number]
--- NOTE | 2019-12-28 16:46 | PN ---
Date of Progress Note: 12/28/2019 Subjective: Patient is seen by bedside, doing well. No chest pain. Review of Systems: No chest pain, shortness of breath, orthopnea, or cough. No nausea, vomiting, diarrhea. No abdomina l pain. No history of urinary urgency. No skin rash or headache. All other systems reviewed and th ey were negative. Physical Examination: Vital Signs: Temperature is 97.8, pulse 70, breathing at 19, blood pressure 134/62, saturating 94%. General: Pleasant elderly male, in no apparent distress. Head and Neck: Pupils are equal, reactive to light. Intact eye movements. No JVD. No cervical lym phadenopathy. Neck is supple. Thyroid is not enlarged. Lungs: Clear to auscultation bilaterally. No rhonchi, rales, or crackles. No accessory muscle use. Heart: Regular rate and rhythm. No extra sounds. Abdomen: Soft, nontender. Bowel sounds positive. No organomegaly. No masses or hernia. No rigidi ty or rebound. Extremities: No edema, clubbing, or cyanosis. Intact pulses. Skin: No rash. Neurologic: Alert, awake, oriented x3. No acute focal deficits appreciated. Lymph Nodes: No cervical or axillary lymphadenopathy. Investigations: Cardiac catheterization revealed a severe mid LAD stenosis, status post PCI using 2. 75 x 60 mm Synergy drug-eluting stent with excellent results. Assessment And Plan: 1.Non-ST elevation myocardial infarction due to severe mid left anterior descending stenosis, status post percutaneous coronary intervention as above. Patient was loaded with Brilinta, continue 90 mg q.12 hours, Lipitor 80 mg and aspirin 81 mg and patient can be discharged within next 24 hours to [facility] with me in the office in 4 weeks. 2.Hypertension. Blood pressure is much better now. Continue to monitor. 3.Dyslipidemia. High-dose statin as above. SR/MODL Voice ID: [id number] Report ID: [id number]
[2019-12-28] MEDS: AMLODIPINE 5 MG TAB PO SCH (20:42)
[2019-12-28] MEDS: TICAGRELOR 90 MG TABLET PO SCH (20:42)
[2019-12-28] MEDS ORDERED: ATORVASTATIN 80 MG TAB PO SCH (22:00)
--- NOTE | 2019-12-29 00:01 | PN ---
Date of Progress Note: 12/28/2019 Subjective: Patient was seen this morning for followup. No new complaints or problems reported by jim jarquin. Lying in bed, not in any distress. No chest pain overnight or any shortness of breath or an y other complaints. Objective: Vital Signs: Reviewed. HEENT: Unremarkable. Lungs: Clear to auscultation. Heart: Sounds normal. Abdomen: Soft. Bowel sounds normal. No guarding, rigidity, tenderness, or distention. Extremities: No leg edema. Impression: 1.Non ST-elevation myocardial infarction. 2.Coronary artery disease. 3.Hypertension. 4.Hyperlipidemia. Plan: Patient had a cardiac cath done today and Dr. Cortes called me with the findings of cardiac ca th and he did place 1 stent in. We will continue antiplatelet therapy per his recommendation. Patie nt will need to continue high-dose statin therapy upon discharge from the hospital and I will see him tomorrow morning for followup. We will discharge him tomorrow morning if his condition is stable. ANN/MODL Voice ID: [id number] Report ID: [id number]
[2019-12-29] MEDS: FLECAINIDE 100 MG TAB PO SCH (07:57)
[2019-12-29] MEDS: TICAGRELOR 90 MG TABLET PO SCH (07:57)
[2019-12-29] MEDS: LOSARTAN POTASSIUM 50 MG TABLET PO SCH (07:57)
[2019-12-29 08:23] VITALS: BP 135/80; TEMP 97
[2019-12-29 08:35] VITALS: O2SAT 96
[2019-12-29] MEDS ORDERED: ASPIRIN 81 MG CHEWABLE TABLET PO SCH (09:00)
--- NOTE | 2019-12-29 17:23 | PN ---
Date of Progress Note: 12/29/2019 Subjective: Mr. Ramirez underwent an LAD stent yesterday by Dr. Cortes following a [id number] m yocardial infarction. The access was obtained through the right ulnar artery. Inspection of the hea rt today showed no hematoma. Overnight, he has no complaint. Objective: Vital Signs: Stable. He is afebrile. He is not having any arrhythmia. Chest: Clear. Cardiac: Normal. Extremities: Showed no edema. Assessment And Plan: Mr. Ramirez is status post LAD stent. He will be going home on his home medicat ions including Norvasc, flecainide, Cozaar. He will also be on Lipitor 80 mg daily as well as Brilin ta 90 mg b.i.d. We will see him in the office in the next 2 to 4 weeks. YONI/DAMARIS Voice ID: [id number] Report ID: [id number]
--- NOTE | 2019-12-30 00:07 | DS ---
Date of Discharge: 12/29/2019 Disposition: Discharged to go home. Physical Examination: HEENT: Unremarkable. Lungs: Clear to auscultation. Heart: Heart sounds normal. Abdomen: Soft, bowel sounds normal. No guarding, rigidity, tenderness, or distention. Extremities: No leg edema. Right hand neurovascular status is normal. Discharge Medications And Instructions: 1.Continue all prior home medications. 2.Take new medications as below: 3.Atorvastatin 80 mg 1 tablet p.o. daily at bedtime. 4.Brilinta 90 mg 1 tablet p.o. 2 times a day and the patient was advised to take it about 12 hours a part. 5.Follow up at my office on 01/04/2020 and call office for appointment. 6.Follow up with resp therapist in 3-4 weeks. Hospital Course: This is a 74-year-old very pleasant male patient, admitted to the hospital with com plaints of chest pain. Please see dictated H and P for more information. After patient was evaluate d in emergency room, was admitted to the hospital. Patient had non-STEMI. After his admission to [facility], he has not had any recurrence of chest pain. His cardiac enzymes were abnormal and he wa s given Lovenox, aspirin, and home medications were continued. Cardiology consultation was requested and yesterday the patient had a cardiac cath done which revealed about 90% stenosis of mid LAD and s tent was placed in this region. Patient has about 30% stenosis of proximal and distal LAD, which did not require any intervention. The rest of the coronaries were normal. After the procedure, patient remained clinically stable. He was started on Brilinta by resp therapist 90 mg every 12 hours and the patient will need to stay on high dose statin therapy and atorvastatin 80 mg daily at bedtime was st arted also. All these details were discussed with him. I will see him for followup on outpatient [facility]. Final Diagnoses: 1.Etb-RH-wxwwzmqvo myocardial infarction. 2.Hypertension. 3.Mixed hyperlipidemia. 4.Impaired fasting glucose. 5.Abdominal aortic aneurysm. 6.Nonalcoholic fatty liver disease. 7.Insomnia. Laboratory Data: Upon admission, white count 6.9, hemoglobin 14, platelets 204 and yesterday white c ount 6.3 hemoglobin 12.8, platelets 181. His triglyceride 125, total cholesterol 125, HDL 67, LDL 33 . Initial sodium 142, potassium 4.1, chloride 110, bicarb 27, BUN 24, creatinine 1.13, and glucose 1 15. Liver function tests unremarkable. First troponin 0.04, second troponin 0.55, and third troponi n 1.27. ANN/MODL Voice ID: [id number] Report ID: [id number]
== END 2019-12-29 09:28 | disposition home or self-care (01) | DRG 247 ==
LOC: ER 19:33 → 2ND 21:23 → INTOOBSV 21:23 → OBSVTOIN 21:23
PROVIDERS: ADMIT Internal Medicine; ATTEND Internal Medicine
PROC: 027034Z Dilation of Coronary Artery, One Artery with Drug-eluting Intraluminal Device, Percutaneous Approach (ICD-10-PCS; principal; 2019-12-28)
PROC: 4A023N7 Measurement of Cardiac Sampling and Pressure, Left Heart, Percutaneous Approach (ICD-10-PCS; 2019-12-28)
PROC: B2111ZZ Fluoroscopy of Multiple Coronary Arteries using Low Osmolar Contrast (ICD-10-PCS; 2019-12-28)
DX: I21.4 Non-ST elevation (NSTEMI) myocardial infarction (principal); I10 Essential (primary) hypertension; E78.2 Mixed hyperlipidemia; J45.909 Unspecified asthma, uncomplicated; G47.00 Insomnia, unspecified; R73.01 Impaired fasting glucose; I71.4 Abdominal aortic aneurysm, without rupture; K76.0 Fatty (change of) liver, not elsewhere classified; I48.91 Unspecified atrial fibrillation; I25.10 Atherosclerotic heart disease of native coronary artery without angina pectoris; Z79.899 Other long term (current) drug therapy; Z90.49 Acquired absence of other specified parts of digestive tract; Z79.82 Long term (current) use of aspirin
CPT/HCPCS: 36415; 71045; 76700; 80048; 80061; 80076; 83735; 83880; 84484; 85025; 85347; 85610; 85730; 93005; 93454; 96374; 96375; 99285; C1725; C1893; C9600; G0378; J1644; J1650; J2250; J2270; J2405; J3010; J7040